=== PATIENT | female | born 1955 | race Caucasian/White ===

== ENCOUNTER 2023-05-05 15:42 | Emergency (ER) | payer MEDICARE, OTHER, SELFPAY ==
[2023-05-05 15:42] VITALS: BMI 22.1
[2023-05-05 15:46] VITALS: BP 136/89
[2023-05-05 15:49] VITALS: BP 136/89
[2023-05-05 16:00] VITALS: BP 143/94
[2023-05-05 16:27] LABS: % Basophils 0.8 % (0-2); % Eosinophils 6.2 % (0-6); % Immature Granulocytes 0.2 % (0-0.5); % Lymphocytes 32.6 % (20.5-51.1); % Monocytes 8.3 % (1.7-9.3); % Neutrophils 51.9 % (42.2-75.2); Absolute Eosinophils 0.3 10^3/uL (0-0.7); Absolute Lymphocytes 1.6 10^3/uL (1.2-3.4); Absolute Monocytes 0.4 10^3/uL (0.1-0.6); Absolute Neutrophils 2.5 10^3/uL (1.4-6.5); Hematocrit 34.2 % (37.0-47.0); Hemoglobin 12.1 g/dL (12.0-16.0); Mean Corp Hgb Conc. 35.4 g/dL (33.0-37.0); Mean Corpuscular Hgb 29.9 pg (27.0-31.0); Mean Corpuscular Volume 84.4 fL (81.0-99.0); Mean Platelet Volume 8.3 fL (7.4-10.4); Nucleated Red Blood Cells % 0 %; Platelet Count 240 10^3/uL (130-400); Red Blood Cell Count 4.05 10^6/uL (4.20-5.40); Red Cell Dist. Width 14.1 % (11.5-14.5); White Blood Cell Count 4.8 10^3/uL (4.8-10.8)
[2023-05-05 16:49] LABS: Blood Urea Nitrogen 10 mg/dl (7-17); Calcium 9.1 mg/dl (8.4-10.2); Carbon Dioxide 30 mmol/L (22-30); Chloride 93 mmol/L (98-107); Estimated Creatinine Clearance 75 ml/min; Glucose 98 mg/dl (70-99); Potassium 2.9 mmol/L (3.5-5.1); Sodium 128 mmol/L (135-145); eGFR > 60.00
[2023-05-05 17:00] VITALS: BP 133/86
[2023-05-05] MEDS: KCL 40 MEQ PO (18:23)
[2023-05-05] MEDS: NSS 1000 IV (18:25)
[2023-05-05 18:36] LABS: Magnesium 2.1 mg/dl (1.6-2.3)
--- NOTE | 2023-05-05 18:53 | ED.GENMED ---
History of Present Illness
General
Chief Complaint: Numbness
Source: patient
Exam Limitations: none
Time Seen by Provider: 05/05/23 17:25
Nursing documentation reviewed up to this point in time: agreed with
Travel History
Have you had any contact with someone who has COVID-19?: No
Do you have any symptoms of coronavirus? Fever > 100 degrees, chills, cough, shortness of breath, sore throat, loss of taste or smell, muscle aches, or headache?: No
History of Present Illness
History of Present Illness:
Patient presents to ED secondary to sudden onset of right arm numbness upon waking up this morning, along with pain in her right toes. Denies headache. Patient reports chronic, ongoing neck pain. Since waking up this morning, patient states that
her numbness has gradually improved. At the time of evaluation ED, patient is without any complaints. Denies difficulty with speech or swallowing. Denies weakness. Denies difficulty with ambulation. Denies previous history of similar symptoms.
Denies recent illness. Denies recent injury. Patient is status post left wrist surgery at [facility] recently.
Past History
Past History
ED Past Medical History: Seizures, Hypothyroidism, Psychiatric (Depression) and Other (Heart murmur)
ED Past Surgical History: Cholecystectomy (1994), Orthopedic (Spinal fusion/discectomy 1986), Tonsilectomy and Other (Sinus surgery)
Social History
Tobacco: Non-smoker
Alcohol: None
Drug: None
Personal: Single
Living: alone
Review of Systems
Review of Systems
Allergies reviewed?: Yes
All Other Systems: ROS reviewed and negative except as documented in HPI and ROS
Constitutional: Reports no symptoms
EENT: Reports no symptoms
Respiratory: Reports no symptoms
Cardiac: Reports no symptoms
ABD/GI: Reports no symptoms
: Reports no symptoms
Musculoskeletal: Reports neck pain
Skin: Reports no symptoms
Neurological: Reports numbness
Phy Exam
Physical Exam
Physical Exam:
Physical Exam
General: no apparent distress, not acutely ill. afebrile
Head: nc/at. eomi
Neck: supple. no midline tenderness.
Heart: s1/s2 regular rate and rhythm, no murmur. equal radial pulses.
Lungs: no acute respiratory distress. clear bilaterally
Abdomen: normal bowel sounds. not tender.
Neuro: alert and oriented. no focal neurological deficits. normal speech. normal gait.
Skin: no rash
Psychiatric: well kept. interactive and cooperative
Extremities: no edema. no calf tenderness.
Course
Orders/Labs/Results
Orders:
Orders
05/05/23 16:16
CT Head W/o Iv Contrast Urgent
Comment:
Reason For Exam: right sided numbness
Cardiac Monitoring- Treatment ONCE
Pulse Ox/cont/shift [RESP] Stat
Quantity: 1
05/05/23 16:17
Electrocardiogram (*1) Stat
Reason for Study: Other
Other Reason for Exam: neuro symptoms
EKG- Treatment ONCE
IV Insert/Care/Rem.- Treatment PRN
05/05/23 16:18
Basic Metabolic Panel Urgent
Complete Blood Count/With Diff Urgent
Magnesium Urgent
Comment: ADD ON
05/05/23 17:59
Add On- LAB Urgent
Tests Added?: magnesium
0.9% Sodium Chloride 1000 ml [Nss] 1,000 ml IV BOLUS
Potassium Chloride [KCl] 40 meq PO NOW STA
05/05/23 19:54
Basic Metabolic Panel Urgent
05/05/23 20:28
Acetaminophen [Tylenol] 650 mg PO NOW STA
Gabapentin [Neurontin] 300 mg PO NOW STA
05/05/23 20:53
Potassium Chloride [KCl] 20 meq PO NOW STA
05/05/23 21:03
Potassium Chloride [KCl] 40 meq 0.9% Sodium Chloride 250 ml [Nss] 250 ml IV NOW
05/06/23 02:22
Potassium Urgent
Abnormal Lab Results
05/05/23 05/05/23
16:18 19:54
RBC 4.05 L 10^6/uL
(4.20-5.40)
Hct 34.2 L %
(37.0-47.0)
Eosinophils % 6.2 H %
(0-6)
Sodium 128 L mmol/L 134 L mmol/L
(135-145) (135-145)
Potassium 2.9 L mmol/L 2.5 L* mmol/L
(3.5-5.1) (3.5-5.1)
Chloride 93 L mmol/L 95 L mmol/L
(98-107) (98-107)
Carbon Dioxide 34 H mmol/L
(22-30)
Creatinine 0.4 L mg/dL 0.5 L mg/dL
(0.6-1.0) (0.6-1.0)
Glucose 112 H mg/dl
(70-99)
05/05/23 16:18
05/06/23 02:22
Vital Signs
Initial and Last Documented VS:
Initial Vital Signs
Temp Pulse Resp BP Pulse Ox
98.3 F 92 16 136/89 99
05/05/23 15:46 05/05/23 15:46 05/05/23 15:46 05/05/23 15:46 05/05/23 15:46
Last Documented Vital Signs
Temp Pulse Resp BP Pulse Ox
98.3 F 78 26 120/90 98
05/05/23 15:46 05/06/23 03:20 05/06/23 03:20 05/06/23 03:21 05/06/23 03:20
MDM/Problems Addressed
MDM/Problems Addressed:
Patient remains asymptomatic, without any recurrent episodes of paresthesia during extended course of observation ED. Patient's spontaneously resolved numbness sensation, likely secondary to the way in which she may have slept with underlying disc
disease.
Blood work reviewed, significant for hyponatremia and hypokalemia. When repeated after IV fluid administration, sodium improvement noted, but potassium decreased, likely dilutional. As such, decision made to replete via K rider. Potassium will be
repeated. If improved, patient will be discharged home with recommendation to continue supplementation as an outpatient, along with PCP follow-up
*EKG
Interpreted by ED Provider?: Yes
EKG Intrepretation Date: 05/05/23
Heart Rate: 69
Rate: normal
Rhythm: sinus
[place]: normal axis
Interval: normal interval
*Critical Care Note
Total Time (30-74mins, 75-104mins- exclusive of procedures): Not Applicable
ED Attending Note
-
Portions of this chart may have been created with voice recognition software.� Occasional wrong word or��sound alike� substitutions may have occurred due to the inherent limitations of voice recognition software.
Discharge Plan
Departure
Patient Disposition: Home (Routine Discharge)
Date of Disposition: 05/06/23
Time of Disposition: 03:10
Patient with high blood pressure during this ER visit?: Yes
Condition: Good
Discharge Problem:
Hyponatremia, Hypokalemia
Instructions: Hypokalemia (DC), High Potassium Diet, Hyponatremia (DC), Paresthesia (DC)
Prescriptions:
No Action
levothyroxine 112 MCG tablet
112 mcg PO DAILY
lorazepam 0.5 MG tablet
0.5 mg PO QIDPRN PRN (Reason: anxiety)
amlodipine 5 MG tablet
5 mg PO DAILY
sertraline 50 mg Tablet
150 mg PO DAILY
cyclobenzaprine [Flexeril] 10 mg Tablet
10 mg PO HS
fexofenadine [Radha] 60 mg Tablet
60 mg PO BIDPRN PRN (Reason: allergies)
dextroamphetamine-amphetamine [Adderall] 20 mg Tablet
20 mg PO DAILYPRN PRN (Reason: for work days only)
gabapentin 300 mg Capsule
600 mg PO BID
cholecalciferol (vitamin D3) [Vitamin D3] 25 mcg (1,000 unit) Tablet
25 mcg PO DAILY
magnesium oxide 400 mg magnesium Tablet
400 mg PO DAILY
Referrals:
Hilaria Figueroa MD [Family Provider] -
Activity Restrictions/Additional Instructions:
As discussed, please follow-up with your primary care physician for reevaluation, including repeat blood work within 1 to 2 weeks.
Interventions
Interventions:
*Risk Screen - Suicide Last Done: 05/05/23 15:50
*General Assessment Last Done: 05/05/23 15:50
*Neglect/Abuse Screening Last Done: 05/05/23 15:50
*ED COVID-19 Vaccine History Last Done: 05/05/23 15:50
*Nursing Disposition Last Done: 05/06/23 03:15
ED- Neurological Assessment Last Done: 05/05/23 15:50
Discharge Date and Time
Discharge Date/Time: 05/06/23 03:50
[2023-05-05] MEDS: TYLENOL 650 MG PO (20:31)
[2023-05-05] MEDS: NEURONTIN 300 MG PO (20:31)
[2023-05-05 20:39] LABS: Blood Urea Nitrogen 8 mg/dl (7-17); Calcium 8.5 mg/dl (8.4-10.2); Carbon Dioxide 34 mmol/L (22-30); Chloride 95 mmol/L (98-107); Estimated Creatinine Clearance 75 ml/min; Glucose 112 mg/dl (70-99); Potassium 2.5 mmol/L (3.5-5.1); Sodium 134 mmol/L (135-145); eGFR > 60.00
[2023-05-05] MEDS: KCL 270 MEQ IV (21:17)
[2023-05-05] MEDS: KCL 20 MEQ PO (21:18)
[2023-05-05 22:08] VITALS: BP 122/77
[2023-05-05 23:00] VITALS: BP 114/79
[2023-05-06 02:44] LABS: Potassium 4.1 mmol/L (3.5-5.1)
[2023-05-06 03:21] VITALS: BP 120/90
== END 2023-05-06 03:50 | disposition home or self-care (01) ==
LOC: EMR 15:42
PROVIDERS: Emergency Medicine; EMERGENCY PHYSICIAN Emergency Medicine; FAMILY PHYSICIAN Family Medicine
DX: E87.6 Hypokalemia (principal); E87.1 Hypo-osmolality and hyponatremia; R03.0 Elevated blood-pressure reading, without diagnosis of hypertension
CPT/HCPCS: 99285; 96374; 96361; 70450; 80048; 83735; 84132; 85025; 93005

== ENCOUNTER → 2023-06-21 15:45 | Outpatient (REF) | payer MEDICARE, OTHER, SELFPAY ==
[2023-06-21 16:25] LABS: % Eosinophils 2.7 % (0-6); % Immature Granulocytes 0.3 % (0-0.5); % Lymphocytes 21.4 % (20.5-51.1); % Monocytes 8.2 % (1.7-9.3); % Neutrophils 66.4 % (42.2-75.2); Absolute Basophils 0.1 10^3/uL (0-0.2); Absolute Eosinophils 0.2 10^3/uL (0-0.7); Absolute Lymphocytes 1.3 10^3/uL (1.2-3.4); Absolute Monocytes 0.5 10^3/uL (0.1-0.6); Absolute Neutrophils 4.2 10^3/uL (1.4-6.5); Hematocrit 38.6 % (37.0-47.0); Hemoglobin 13.2 g/dL (12.0-16.0); Mean Corp Hgb Conc. 34.2 g/dL (33.0-37.0); Mean Corpuscular Volume 84.8 fL (81.0-99.0); Mean Platelet Volume 8.2 fL (7.4-10.4); Nucleated Red Blood Cells % 0 %; Platelet Count 321 10^3/uL (130-400); Red Blood Cell Count 4.55 10^6/uL (4.20-5.40); Red Cell Dist. Width 15.4 % (11.5-14.5); White Blood Cell Count 6.3 10^3/uL (4.8-10.8)
[2023-06-21 16:50] LABS: ALT (SGPT) 21 U/L (0-35); AST (SGOT) 29 U/L (14-36); Albumin 4.6 g/dl (3.5-5.0); Alkaline Phosphatase 87 U/L (38-126); Blood Urea Nitrogen 16 mg/dl (7-17); Carbon Dioxide 34 mmol/L (22-30); Chloride 92 mmol/L (98-107); Glucose 98 mg/dl (70-99); HDL Cholesterol 106 mg/dl; LDL Cholesterol, Calculated 69 mg/dl; Potassium 3.4 mmol/L (3.5-5.1); Sodium 134 mmol/L (135-145); Total Bilirubin 0.8 mg/dl (0.2-1.3); Total Cholesterol 189 mg/dl (50-199); Total Protein 7.3 g/dl (6.3-8.2); Triglyceride 73 mg/dl (10-149); Very Low Density Lipoprotein 14 mg/dl (0-30); eGFR > 60.00
== END ==
LOC: REG 15:45
PROVIDERS: ATTENDING PHYSICIAN Nurse Practitioner; FAMILY PHYSICIAN Family Medicine; OTHER PHYSICIAN Psychiatry & Neurology Neurology
DX: G43.009 Migraine without aura, not intractable, without status migrainosus (principal); G45.9 Transient cerebral ischemic attack, unspecified; R79.89 Other specified abnormal findings of blood chemistry; E87.1 Hypo-osmolality and hyponatremia
CPT/HCPCS: 36415; 80053; 80061; 85025

== ENCOUNTER → 2023-08-17 16:27 | Outpatient (REF) | payer MEDICARE, OTHER, SELFPAY | LOC: PAVMRI 16:27 | PROVIDERS: ATTENDING PHYSICIAN Nurse Practitioner; FAMILY PHYSICIAN Family Medicine | DX: G45.9 Transient cerebral ischemic attack, unspecified (principal) | CPT/HCPCS: 70544; 70547; 70551 ==

== ENCOUNTER → 2023-08-23 17:30 | Outpatient (REF) | payer MEDICARE, OTHER, SELFPAY ==
[2023-08-23 18:08] LABS: Blood Urea Nitrogen 19 mg/dl (7-17); Calcium 10.1 mg/dl (8.4-10.2); Carbon Dioxide 30 mmol/L (22-30); Chloride 98 mmol/L (98-107); Glucose 117 mg/dl (70-99); Potassium 4.4 mmol/L (3.5-5.1); Sodium 137 mmol/L (135-145); eGFR > 60.00
== END ==
LOC: REG 17:30
PROVIDERS: ATTENDING PHYSICIAN Family Medicine
DX: E87.1 Hypo-osmolality and hyponatremia (principal)
CPT/HCPCS: 36415; 80048; 83735

== ENCOUNTER → 2023-09-07 10:53 | Outpatient (REF) | payer MEDICARE, OTHER, SELFPAY | LOC: RCS 10:53 | PROVIDERS: ATTENDING PHYSICIAN Nurse Practitioner; FAMILY PHYSICIAN Family Medicine | DX: G45.9 Transient cerebral ischemic attack, unspecified (principal) | CPT/HCPCS: 93225; 93226 ==

== ENCOUNTER → 2023-09-14 10:29 | Outpatient (REF) | payer MEDICARE, OTHER, SELFPAY | LOC: WDC 10:29 | PROVIDERS: ATTENDING PHYSICIAN Family Medicine | DX: Z12.31 Encounter for screening mammogram for malignant neoplasm of breast (principal); M81.0 Age-related osteoporosis without current pathological fracture | CPT/HCPCS: 77080 ==

== ENCOUNTER 2024-01-18 23:13 | Inpatient (IN) | payer MEDICARE, OTHER, SELFPAY ==
[2024-01-18 20:29] VITALS: BP 147/92; BMI 17.9
--- NOTE | 2024-01-18 21:12 | ED.GENMED ---
History of Present Illness
General
Chief Complaint: Change in Mental Status
Time Seen by Provider: 01/18/24 20:57
History of Present Illness
History of Present Illness:
Patient is a 68-year-old woman with history of hypertension, hypothyroidism presenting to the emergency department change in her mental status. Per medics they were called as patient was found outside her home. Her neighbor has seen this happen
once before and was able to redirect her.
Brought her in for further evaluation. Patient at my evaluation is unable to tell me why she is here. She is fixated on receiving a mailing envelope and is telling me about a [employer] and [employer] of the [place]. She does start to talk about her daughter
and her mother and about executing a will. She cannot provide me any medical complaints at this time. She denies any SI or HI. She denies any alcohol or drug use. She does state that she has fallen before. History is otherwise limited given
patient's mental status.
Past History
Past History
ED Past Medical History: Seizures, Hypothyroidism, Psychiatric (Depression) and Other (Heart murmur)
ED Past Surgical History: Cholecystectomy (1994), Orthopedic (Spinal fusion/discectomy 1986), Tonsilectomy and Other (Sinus surgery)
Social History
Tobacco: Non-smoker
Alcohol: None
Drug: None
Personal: Single
Living: alone
Phy Exam
Physical Exam
Physical Exam:
GENERAL: in no acute distress
HEENT: normocephalic, extraocular movements intact, moist oral mucosa
NECK: normal inspection
RESPIRATORY: no respiratory distress, clear to auscultation bilaterally
CARDIOVASCULAR: regular rate and rhythm
ABDOMEN/: soft, non-distended, non-tender to palpation, no rebound or guarding
EXTREMITIES: non-tender, no edema/swelling, bilateral lower extremities feet or erythematous at the sole with some erythema extending up the left calf and some warmth
NEUROLOGIC: awake and alert oriented x 3, moves all extremities
SKIN: warm
Sepsis
Sepsis Screening
Sepsis Assessment: Sepsis Ruled Out
Sepsis Screen
Sepsis Screen: Sepsis Ruled Out
Date: 01/18/24
Time: 22:28
Course
Orders/Labs/Results
Orders:
Orders
01/18/24 21:10
Drug Screen, Urine [Urine Drug Abuse Screen] Urgent
Urinalysis Reflex To Culture Urgent
01/18/24 21:11
Electrocardiogram (*1) Urgent
Reason for Study: Other
Other Reason for Exam: altered
CT Head W/o Iv Contrast Urgent
Comment:
Reason For Exam: altered
EKG- Treatment ONCE
01/18/24 21:36
Alcohol Urgent
Aspirin level [Salicylate] Urgent
Complete Blood Count/With Diff Urgent
Comprehensive Metabolic Panel Urgent
Thyroid profile [TSH Reflex To Free T4] Urgent
Tylenol [Acetaminophen] Urgent
01/18/24 22:25
Vancomycin 1 Gram/200 ml [Vancocin] 1 gram in 200 ml IV NOW
Abnormal Lab Results
01/18/24
21:36
Absolute Neuts (auto) 7.1 H 10^3/uL
(1.4-6.5)
Absolute Monos (auto) 0.8 H 10^3/uL
(0.1-0.6)
Lymphocytes % 17.4 L %
(20.5-51.1)
Potassium 3.4 L mmol/L
(3.5-5.1)
Chloride 93 L mmol/L
(98-107)
Carbon Dioxide 36 H mmol/L
(22-30)
BUN 30 H mg/dl
(7-17)
AST 56 H U/L
(14-36)
ALT 36 H U/L
(0-35)
Salicylates < 1.0 L mg/dl
(2.0-20.0)
Acetaminophen < 10 L ug/ml
(10-30)
01/18/24 21:36
01/18/24 21:36
Vital Signs
Initial and Last Documented VS:
Initial Vital Signs
Temp Pulse Resp BP Pulse Ox
98.4 F 77 18 147/92 97
01/18/24 20:29 01/18/24 20:29 01/18/24 20:29 01/18/24 20:29 01/18/24 20:29
Last Documented Vital Signs
Temp Pulse Resp BP Pulse Ox
98 F 77 18 147/92 97
01/18/24 21:38 01/18/24 20:29 01/18/24 20:29 01/18/24 20:29 01/18/24 20:29
MDM/Problems Addressed
Differential Diagnosis Includes:
Patient is a 68-year-old woman with history of hypertension, hypothyroidism presenting to the emergency department for change in her mental status. Vitals here are unremarkable and exam shows a woman who is oriented but is confused and unable to
hold a coherent conversation. Differential is broad but consists of metabolic encephalopathy, traumatic injury, cellulitis, infection. Will check blood work urine EKG CT scan of the head. Will obtain additional information from patient's
daughter. Patient will likely need admission.
*Critical Care Note
Total Time (30-74mins, 75-104mins- exclusive of procedures): Not Applicable
Update Note
Update Note:
Unable to obtain collateral information. On reevaluation patient still remains confused though is oriented and can follow commands. Her left lower extremity erythema is more pronounced and it is more warm after she ambulated. Will give
antibiotics. She is allergic to both penicillins and cephalosporins we will give vancomycin for now. Blood work otherwise notable for normal white count. Her bicarb is slightly elevated she does have some elevation in her AST however tox labs are
negative.
Thyroid cascade pending at this time as well as UDS. Head CT negative per my interpretation. Discussed with hospitalist who excepted patient to their service.
ED Attending Note
-
Portions of this chart may have been created with voice recognition software.� Occasional wrong word or��sound alike� substitutions may have occurred due to the inherent limitations of voice recognition software.
Discharge Plan
Departure
Patient Disposition: Admit
Date of Disposition: 01/18/24
Time of Disposition: 22:26
Presentation/result/management discussed w/ accepting MD/DO: Hospitalist
Discharge Problem:
Altered mental status
Prescriptions:
No Action
levothyroxine 112 MCG tablet
112 mcg PO DAILY
lorazepam 0.5 MG tablet
0.5 mg PO QIDPRN PRN (Reason: anxiety)
amlodipine 5 MG tablet
5 mg PO DAILY
sertraline 50 mg Tablet
150 mg PO DAILY
cyclobenzaprine [Flexeril] 10 mg Tablet
10 mg PO HS
fexofenadine [Radha] 60 mg Tablet
60 mg PO BIDPRN PRN (Reason: allergies)
dextroamphetamine-amphetamine [Adderall] 20 mg Tablet
20 mg PO DAILYPRN PRN (Reason: for work days only)
gabapentin 300 mg Capsule
600 mg PO BID
cholecalciferol (vitamin D3) [Vitamin D3] 25 mcg (1,000 unit) Tablet
25 mcg PO DAILY
magnesium oxide 400 mg magnesium Tablet
400 mg PO DAILY
Referrals:
UNKNOWN - PT NOT,INTERVIEWE [Family Provider] -
Interventions
Interventions:
*Risk Screen - Suicide Last Done: 01/18/24 20:29
*General Assessment Last Done: 01/18/24 20:29
*Neglect/Abuse Screening Last Done: 01/18/24 20:29
ED- Fall Risk Assessment Last Done: 01/18/24 21:39
*ED COVID-19 Vaccine History Last Done: 01/18/24 21:39
ED- Cardiac Assessment Last Done: 01/18/24 21:39
ED- Neurological Assessment Last Done: 01/18/24 21:39
ED- Pulmonary Assessment Last Done: 01/18/24 21:39
ED Swallowing Screen Last Done: 01/18/24 21:39
Discharge Date and Time
Print Language: FRENCH
[2024-01-18 21:38] VITALS: BMI 19.1
[2024-01-18 21:42] LABS: % Basophils 0.5 % (0-2); % Eosinophils 0.2 % (0-6); % Immature Granulocytes 0.4 % (0-0.5); % Lymphocytes 17.4 % (20.5-51.1); % Monocytes 8.5 % (1.7-9.3); Absolute Basophils 0.1 10^3/uL (0-0.2); Absolute Lymphocytes 1.7 10^3/uL (1.2-3.4); Absolute Monocytes 0.8 10^3/uL (0.1-0.6); Absolute Neutrophils 7.1 10^3/uL (1.4-6.5); Hematocrit 40.4 % (37.0-47.0); Hemoglobin 13.8 g/dL (12.0-16.0); Mean Corp Hgb Conc. 34.2 g/dL (33.0-37.0); Mean Corpuscular Hgb 28.3 pg (27.0-31.0); Mean Platelet Volume 8.5 fL (7.4-10.4); Nucleated Red Blood Cells % 0 %; Platelet Count 307 10^3/uL (130-400); Red Blood Cell Count 4.87 10^6/uL (4.20-5.40); Red Cell Dist. Width 14.2 % (11.5-14.5); White Blood Cell Count 9.7 10^3/uL (4.8-10.8)
[2024-01-18 22:00] LABS: ALT (SGPT) 36 U/L (0-35); AST (SGOT) 56 U/L (14-36); Acetaminophen < 10 ug/ml (10-30); Albumin 4.7 g/dl (3.5-5.0); Alcohol None Detected; Alkaline Phosphatase 78 U/L (38-126); Blood Urea Nitrogen 30 mg/dl (7-17); Calcium 10.1 mg/dl (8.4-10.2); Carbon Dioxide 36 mmol/L (22-30); Chloride 93 mmol/L (98-107); Estimated Creatinine Clearance 69 ml/min; Glucose 91 mg/dl (70-99); Potassium 3.4 mmol/L (3.5-5.1); Salicylate < 1.0 mg/dl (2.0-20.0); Sodium 139 mmol/L (135-145); Total Bilirubin 1.1 mg/dl (0.2-1.3); Total Protein 7.2 g/dl (6.3-8.2); eGFR > 60.00
[2024-01-18 22:29] LABS: TSH Reflex To Free T4 3.15 uIU/ml (0.47-4.68)
--- NOTE | 2024-01-18 22:46 | PHANOTE ---
Med Rec Note:
Pt unable to answer questions about medications. Pt telling multiple different stories. Home med list compiled from Dr Hanley and OBINNA.
[2024-01-18] MEDS: VANCOCIN 200 IV (23:00)
--- NOTE | 2024-01-18 23:08 | HPS.HSE ---
Family Physician
-
Family Physician: INTERVIEWE UNKNOWN - PT NOT
Chief Complaint
-
altered mental status
History of Present Illness
68-year-old female past medical history of hypertension, hypothyroidism, depression, seizures, presenting for change in mental status. Patient was found outside her home. Her neighbor has seen this happen before and was able to redirect her.
Patient unable to tell ER why she is here. She is fixated on receiving a mailing envelope and is telling the ER about the [employer] of the [place]. She talked about her daughter and her mother and about executing a bill. She denies any
symptoms or drug use.
Patient states that her sister thinks that she has schizophrenia.
Patient denies any urinary symptoms, nausea vomiting or diarrhea or cough. Denies fevers or chills.
Medical History
Past Medical History
Past Medical History: Reports Other ( hypertension, hypothyroidism, depression, seizures)
Past Surgical History: Reports Other (Cholecystectomy (1994), Orthopedic (Spinal fusion/discectomy 1986), Tonsilectomy and Other (Sinus surgery))
Social History
Tobacco: Non-smoker
Alcohol: None
Drug: None
Family History
Family History: Not pertinent
Allergies / Home Medications
Allergies reflects when Allergies were last updated in [employer].
Home Medications with original date entered in [employer]
Allergy/Medication List:
Allergies
Allergy/AdvReac Type Severity Reaction Status Date / Time
penicillin G Allergy Severe Hives Verified 01/18/24 20:28
Penicillins Allergy Severe Hives Verified 01/18/24 20:28
butorphanol [From Stadol] Allergy Intermediate Unknown Verified 01/18/24 20:28
Cephalosporins Allergy Unknown Verified 01/18/24 20:28
Home Medications
levothyroxine 112 mcg tablet 112 mcg PO DAILY Thyroid 05/22/21
lorazepam 0.5 mg tablet 0.5 mg PO QIDPRN PRN anxiety 01/29/22
amlodipine 5 mg tablet 5 mg PO DAILY Blood pressure 01/30/22
cyclobenzaprine 10 mg tablet 10 mg PO HS 04/02/23
dextroamphetamine-amphetamine 20 mg tablet (Adderall) 20 mg PO DAILYPRN PRN for work days only 04/02/23
fexofenadine 60 mg tablet 60 mg PO BIDPRN PRN allergies 04/02/23
gabapentin 300 mg capsule 600 mg PO BID 04/02/23
magnesium oxide 400 mg PO DAILY 04/02/23
sertraline 50 mg tablet 150 mg PO DAILY 04/02/23
hydrochlorothiazide 12.5 mg tablet 12.5 mg PO DAILY 01/18/24
hydrocodone 5 mg-acetaminophen 325 mg tablet 1 tab PO Q6HPRN PRN moderate pain 01/18/24
Review of Systems
-
History Source: Patient
A 12 point ROS was completed and negative except as noted: Yes
Constitutional: Reports No Symptoms
EENT: Reports No Symptoms
Respiratory: Reports No Symptoms
Cardiac: Reports No Symptoms
Abdomen/GI: Reports No Symptoms
: Reports No Symptoms
Musculoskeletal: Reports No Symptoms
Skin: Reports No Symptoms
Neurological: Reports No Symptoms
Endocrine: Reports No Symptoms
Hematologic/Lymphatic: Reports No Symptoms
Psych: Reports No Symptoms
Physical Exam
Vital Signs
Vital Signs
Temp Pulse Resp BP Pulse Ox
98 F 77 18 147/92 97
01/18/24 21:38 01/18/24 20:29 01/18/24 20:29 01/18/24 20:29 01/18/24 20:29
Physical Exam
General: Well Developed, Well Nourished and No Apparent Distress
HEENT: NormoCephalic, Moist mucous membranes and Atraumatic
Respiratory: Clear
Cardiac: S1/S2 and Regular Rhythm; No Murmur or Rub
GI: Soft, Non Tender, Non Distended and Normal Bowel Sounds; No Organomegaly
Rectal: Deferred by Provider
Musculoskeletal: No Clubbing, No Cyanosis and No Edema
Skin: No Rash
Neuro: Nonfocal/grossly intact
Laboratory Results
-
01/18/24 21:36
01/18/24 21:36
Laboratory Results
Total Bilirubin 1.1 mg/dl (0.2-1.3) 01/18/24 21:36
AST 56 U/L (14-36) H 01/18/24 21:36
ALT 36 U/L (0-35) H 01/18/24 21:36
Alkaline Phosphatase 78 U/L (38-126) 01/18/24 21:36
Data Reviewed
-
Lab Data: Labs Reviewed by me
Old Records: Reviewed
Impression/Plan
-
IMPRESSION:
PLAN:
# Acute encephalopathy rule out infectious etiology but likely schizophrenia versus bipolar
-Patient was initially noted to have erythema redness of the left lower extremity by the ER and was given vancomycin however this has resolved at this time, doubt cellulitis and stop further vanc
-Patient with flight of ideas and quickly changing the subject
-CT head negative for acute abnormality
-Urinalysis pending
-UDS pending
-Tylenol, salicylates, alcohol level negative
-Hold Adderal
-Check TSH
-Psychiatry consulted
# Hypokalemia secondary to hydrochlorothiazide
-Replete potassium
Anxiety/depression
-Continue sertraline
-Hold Ativan
ADHD
-Hold Adderall
Essential hypertension
-Continue amlodipine
-Continue hydrochlorothiazide
Hypothyroidism
-Continue levothyroxine
History of seizures
-Continue gabapentin
Full code
DVT prophylaxis�heparin
Regular diet
[2024-01-18] MEDS: KCL 40 MEQ PO (23:48)
[2024-01-19 00:58] VITALS: BP 131/70
--- NOTE | 2024-01-19 01:50 | PTCARENOTE ---
Pt arrived to room 436-01. Pt ambulated from stretcher to bed. Pt AAOx self, VSS. Bed alarm placed. Pt oriented to room, call eddy placed within reach.
[2024-01-19 02:10] VITALS: BP 149/94; BMI 19.0
[2024-01-19 04:45] LABS: % Basophils 0.6 % (0-2); % Eosinophils 0.7 % (0-6); % Immature Granulocytes 0.2 % (0-0.5); % Lymphocytes 18.3 % (20.5-51.1); % Monocytes 10.8 % (1.7-9.3); % Neutrophils 69.4 % (42.2-75.2); Absolute Basophils 0.1 10^3/uL (0-0.2); Absolute Eosinophils 0.1 10^3/uL (0-0.7); Absolute Lymphocytes 1.5 10^3/uL (1.2-3.4); Absolute Monocytes 0.9 10^3/uL (0.1-0.6); Absolute Neutrophils 5.6 10^3/uL (1.4-6.5); Hematocrit 38.9 % (37.0-47.0); Hemoglobin 13.5 g/dL (12.0-16.0); Mean Corp Hgb Conc. 34.7 g/dL (33.0-37.0); Mean Corpuscular Hgb 29.3 pg (27.0-31.0); Mean Corpuscular Volume 84.4 fL (81.0-99.0); Mean Platelet Volume 8.7 fL (7.4-10.4); Nucleated Red Blood Cells % 0 %; Platelet Count 275 10^3/uL (130-400); Red Blood Cell Count 4.61 10^6/uL (4.20-5.40); Red Cell Dist. Width 13.9 % (11.5-14.5); White Blood Cell Count 8.1 10^3/uL (4.8-10.8)
[2024-01-19 05:09] LABS: ALT (SGPT) 32 U/L (0-35); AST (SGOT) 53 U/L (14-36); Albumin 4.4 g/dl (3.5-5.0); Alkaline Phosphatase 71 U/L (38-126); Blood Urea Nitrogen 22 mg/dl (7-17); Calcium 9.8 mg/dl (8.4-10.2); Carbon Dioxide 27 mmol/L (22-30); Chloride 98 mmol/L (98-107); Estimated Creatinine Clearance 69 ml/min; Glucose 82 mg/dl (70-99); Potassium 3.8 mmol/L (3.5-5.1); Sodium 140 mmol/L (135-145); Total Bilirubin 1.1 mg/dl (0.2-1.3); Total Protein 6.8 g/dl (6.3-8.2); eGFR > 60.00
[2024-01-19 05:38] LABS: TSH Reflex To Free T4 5.04 uIU/ml (0.47-4.68)
[2024-01-19 06:14] LABS: Free T4 1.51 ng/dl (0.78-2.19)
[2024-01-19 07:53] VITALS: BP 128/82
[2024-01-19] MEDS: HEPARIN 5000 UNITS SC (07:56)
[2024-01-19] MEDS: SYNTHROID 112 MCG PO (07:58)
[2024-01-19] MEDS: NORVASC 5 MG PO (07:58)
[2024-01-19] MEDS: MAG-TAB SR 84 MG PO (07:58)
[2024-01-19] MEDS: ORETIC 12.5 MG PO (07:58)
[2024-01-19] MEDS: NEURONTIN 600 MG PO ×2 (07:58→20:06)
[2024-01-19] MEDS: ZOLOFT 150 MG PO (07:58)
--- NOTE | 2024-01-19 08:34 | W.PN.HOSP.TC ---
Today's Communication/Plan
-
see A/P
Assessment / Plan
Assessment / Plan
HPI: 68-year-old female past medical history of hypertension, hypothyroidism, depression, seizures, p/w change in mental status. Patient was found outside her home. Her neighbor has seen this happen before and was able to redirect her. Patient
unable to tell ER why she was here. She was fixated on receiving a mailing envelope and was telling the ER about the [employer] and [employer] of the [place]. She talked about her daughter and her mother and about executing a bill. She denies any symptoms or
drug use.
Patient stated that her sister thinks she has schizophrenia.
Patient denies any urinary symptoms, nausea vomiting or diarrhea or cough. Denies fevers or chills.
A/P:
# Acute encephalopathy, likely schizophrenia versus bipolar
Patient was initially noted to have erythema redness of the left lower extremity by the ER and was given vancomycin however this has resolved at this time, doubt cellulitis and stopped further vanc
rule out infectious etiology: UA clean, CT head unrevealing, Check CRP
Check UDS
Tylenol, salicylates, alcohol level negative
Hold Adderal
TSH 5.04, FT4 at 1.51
Psychiatry consulted
# Hypokalemia secondary to hydrochlorothiazide
Repleted potassium
# Anxiety/depression
Continue sertraline
Hold Ativan
# ADHD
Hold Adderall
# Essential hypertension
Continue amlodipine
Stop [employer] hydrochlorothiazide with hypokalemia on admission
# Hypothyroidism
Continue levothyroxine
# History of seizures
Continue gabapentin
Full code
DVT prophylaxis� lovenox SQ
Regular diet
Call sons twice to update, calls not answered
Anticipated Discharge: 24 - 48 hours
Subjective/Interval History
-
Date of Service: January 19, 2024
Objective Data
-
Labs:
Laboratory Results
01/18/24 01/19/24
21:36 04:26
WBC 9.7 8.1
Hgb 13.8 13.5
Hct 40.4 38.9
Plt Count 307 275
Sodium 139 140
Potassium 3.4 L 3.8
Chloride 93 L 98
Carbon Dioxide 36 H 27
BUN 30 H 22 H
Creatinine 0.6 0.5 L
Glucose 91 82
Calcium 10.1 9.8
Total Bilirubin 1.1 1.1
AST 56 H 53 H
ALT 36 H 32
Alkaline Phosphatase 78 71
Vital Signs:
Vital Signs
Temp Pulse Resp BP Pulse Ox
36.5 C 83 16 128/82 100
01/19/24 07:53 01/19/24 07:58 01/19/24 07:53 01/19/24 07:58 01/19/24 07:53
Review of Systems
-
Unable to obtain full review of systems at this time due to: Acuity
Physical Exam
-
General: Well Developed, Well Nourished, No Apparent Distress, Comfortable and Conversant
HEENT: Normocephalic, Atraumatic and Moist Mucous Membranes
Respiratory: Clear to Auscultation and Non Labored Respirations; Negative Accessory Resp Muscle Use
Cardiac: Regular Rhythm and S1/S2
GI: Soft, Nontender, Nondistended and Normal Bowel Sounds
Musculoskeletal: No Clubbing and No Cyanosis
Skin: Negative Rash or Ulcers
Neuro: Awake and Alert
Psych: Calm; Negative Intact Judgement/Insight
Data Reviewed
-
CT Scan: Report Reviewed by me
Labs: Labs Reviewed by me
[2024-01-19 10:24] LABS: Urine Albumin Negative (Neg - Trace); Urine Bilirubin Negative (Negative); Urine Character Clear (Clear); Urine Color Yellow; Urine Glucose Negative (Negative); Urine Ketone 3+ (Negative); Urine Leukocyte Trace (Negative); Urine Nitrite Negative (Negative); Urine Occult Blood Negative (Negative); Urine Specific Gravity 1.025 (<1.030); Urine Urobilinogen Negative (Neg - 1+); Urine pH 6.5 (5.0-9.0)
[2024-01-19 10:49] LABS: Urine Bacteria Few (Negative); Urine Red Blood Cell 0-2 /HPF (0-2); Urine Squamous Cell 0-2 /LPF (Few); Urine White Cell 0-2 /HPF (0-5)
[2024-01-19 10:56] LABS: Amphetamines Negative (Negative); Barbiturates Negative (Negative); Benzodiazepines Negative (Negative); Buprenorphine Negative (Negative); Cocaine Negative (Negative); Marijuana Negative (Negative); Methadone Negative (Negative); Methamphetamines Negative (Negative); Opiates Negative (Negative); Phencyclidine Negative (Negative); Tricyclic Antidepressants Negative (Negative)
[2024-01-19 11:11] VITALS: BP 152/94; PULSE 94
[2024-01-19 15:10] VITALS: BP 125/80
--- NOTE | 2024-01-19 17:02 | CON.MD ---
Consultation - Medical
-
68 yr old F with PMH of HTN, hypothyroidism, seizures, and ADHD/mood disorder. Pt presented to ED with a possible change in mental status. Presented with bizarre behavior - fixated on her mail, possibly delusions with talking about the '[place] Workup medically thus far negative, it seems that a neighbor saw pt wandering outside which prompted her coming to ED. Reviewed prior records at , it seems that she has some sort of mood history but details are unclear. As
per Dr. Valdes's evaluation in 2021, pts sister at that time reported that pt has had a history of mood instability for much of her life, however was never hospitalized psychiatrically. At that time, sister reported that she thinks pt has BPD &
PTSD and sister at that time reported that she has seen pt behave this way in the past as well (at that time pt was presenting similarly).
Pt is poor historian and is difficult to interview - thought process is loose in association, speech is logorrheic though easily interuptible. Needs frequent redirection when answering questions as becomes derailed almost immediately when
responding. Appears paranoid, at times looking around suspiciously, often starts whispering as if someone is trying to listen in on what she is saying. Is oriented however unable to meaningfully explain why she is in the hospital - starts talking
about a group of men with some sort of nefarious plans, then says something about a 'figurehead', is very difficult to understand as content of speech is loose in association and seems delusional in nature.
It appears that she is prescribed Adderall IR 20mg once a day and ativan 0.5mg QID (2mg daily total). Her most recent fill of ativan was 3 days early as per PDMP, however other months fills generally on time or few days late so not filling early
consistently/frequently. However, cannot rule out her presentation being due to benzo withdrawal, in particular as her last 2 times admitted at there was no indication of psychosis nor does she appear to be on antipsychotic or mood stabilizer.
Has been taking zoloft 150mg for some time now, which if she were bipolar would have likely significantly destabilized her.
Sons not answering phone.
Unspecified mood d/o w/ psychosis (r/o bipolar I r/o schizoaffective r/o MDD with psychosis) vs benzodiazepene withdrawal
MSE: cooperative,speech is logorrheic,mood is anxious, affect is anxious and at time suspicious, thought process is loose in association, thought content: denies SI/HI, presents which delusions including paranoia. Grossly oriented to time and place.
Memory not formally tested. Insight poor. Judgement poor
1. Ativan 0.5mg QID (changing from PRN) - cannot rule out benzo w/d as cause of presentation. Has not been under care of psychiatrist nor any hx of inpatient admissions, and multiple prior admissions here with no psychosis nor any antipsychotics or
mood stabilizers on board. Her reported behavior of wandering outside and loose logorrheic presentation would be consistent with early delirium of benzo withdrawal.
2. Ordered GGT & CDT - Cannot rule out EtOH abuse as well & pt unable to provide meaningful history as to this. GGT nonspecific but may help if negative, CDT may not result in time but would be more specific and could show if there has been
significant daily use in past 2 weeks or so.
3. Risperidone 0.5mg BIDPRN acute agitation - would defer starting standing dose as want to see if resuming Ativan improves presentation
Will follow patient.
[2024-01-19] MEDS: ATIVAN 0.5 MG PO ×2 (17:50→21:24)
[2024-01-19] MEDS: LOVENOX 40 MG SC (17:50)
[2024-01-19] MEDS: FLEXERIL 10 MG PO (21:24)
[2024-01-19] MEDS: RISPERDAL M-TAB (ORALLY DISINTEGRATING) 0.5 MG PO (22:57)
[2024-01-19 23:00] VITALS: BP 139/92
[2024-01-20 06:42] LABS: ALT (SGPT) 27 U/L (0-35); AST (SGOT) 42 U/L (14-36); Albumin 3.6 g/dl (3.5-5.0); Alkaline Phosphatase 67 U/L (38-126); Blood Urea Nitrogen 14 mg/dl (7-17); Calcium 9.4 mg/dl (8.4-10.2); Carbon Dioxide 35 mmol/L (22-30); Chloride 97 mmol/L (98-107); Estimated Creatinine Clearance 69 ml/min; GGTP 14 U/L (12-43); Glucose 95 mg/dl (70-99); Potassium 3.5 mmol/L (3.5-5.1); Sodium 138 mmol/L (135-145); Total Bilirubin 0.5 mg/dl (0.2-1.3); Total Protein 5.8 g/dl (6.3-8.2); eGFR > 60.00
[2024-01-20 07:00] VITALS: BP 134/83
[2024-01-20] MEDS: NEURONTIN 600 MG PO ×2 (08:33→21:53)
[2024-01-20] MEDS: ZOLOFT 150 MG PO (08:33)
[2024-01-20] MEDS: SYNTHROID 112 MCG PO (08:34)
[2024-01-20] MEDS: MAG-TAB SR 84 MG PO (08:34)
[2024-01-20] MEDS: KCL 40 MEQ PO (08:34)
[2024-01-20] MEDS: NORVASC 5 MG PO (08:35)
[2024-01-20] MEDS: ATIVAN 0.5 MG PO ×4 (08:36→21:53)
--- NOTE | 2024-01-20 08:58 | W.PN.HOSP.TC ---
Today's Communication/Plan
-
see A/P
Assessment / Plan
Assessment / Plan
HPI: 68-year-old female past medical history of hypertension, hypothyroidism, depression, seizures, p/w change in mental status. Patient was found outside her home. Her neighbor has seen this happen before and was able to redirect her. Patient
unable to tell ER why she was here. She was fixated on receiving a mailing envelope and was telling the ER about the Isidro and [place] of the [place]. She talked about her daughter and her mother and about executing a bill. She denies any symptoms or
drug use.
Patient stated that her sister thinks she has schizophrenia.
Patient denies any urinary symptoms, nausea vomiting or diarrhea or cough. Denies fevers or chills.
A/P:
# Acute encephalopathy, likely schizophrenia versus bipolar
Patient was initially noted to have erythema redness of LLE by the ER and was given vancomycin, however this has resolved, doubt cellulitis hence stopped further vanc
ruled out infectious etiology: UA clean, CT head unrevealing, CRP WNL
Tylenol, salicylates, alcohol level negative; UDS negative
Hold Adderal
TSH 5.04, FT4 at 1.51
Psychiatry on board, recc Ativan 0.5mg QID (changing from PRN) as cannot rule out benzo w/d as cause of presentation.
Added Risperidone 0.5mg BIDPRN for acute agitatiom
# Hypokalemia secondary to hydrochlorothiazide
Replete potassium
# Anxiety/depression
Continue sertraline
Ativan dosage as above
# ADHD
Hold Adderall
# Essential hypertension
Continue amlodipine
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
# Hypothyroidism
Continue levothyroxine
# History of seizures
Continue gabapentin
Full code
DVT prophylaxis� lovenox SQ
Regular diet
Called son, call not answered.
Pt states that her sister's number is [phone] but this number does not work either.
DW RN
Anticipated Discharge: 24 - 48 hours
Subjective/Interval History
-
Date of Service: January 20, 2024
Objective Data
-
Labs:
Laboratory Results
01/20/24
05:00
Sodium 138
Potassium 3.5
Chloride 97 L
Carbon Dioxide 35 H
BUN 14
Creatinine 0.5 L
Glucose 95
Calcium 9.4
Total Bilirubin 0.5
AST 42 H
ALT 27
Alkaline Phosphatase 67
Vital Signs:
Vital Signs
Temp Pulse Resp BP Pulse Ox
36.9 C 88 16 134/83 97
01/20/24 07:00 01/20/24 07:00 01/20/24 07:00 01/20/24 07:00 01/20/24 07:00
I&O
01/19/24 01/20/24 01/21/24
07:59 06:59 06:59
Intake Total
Output Total
Balance
Review of Systems
-
Unable to obtain full review of systems at this time due to: Acuity
Physical Exam
-
General: Well Developed, Well Nourished, No Apparent Distress, Comfortable and Conversant
HEENT: Normocephalic, Atraumatic and Moist Mucous Membranes
Respiratory: Clear to Auscultation and Non Labored Respirations; Negative Accessory Resp Muscle Use
Cardiac: Regular Rhythm and S1/S2
GI: Soft, Nontender, Nondistended and Normal Bowel Sounds
Musculoskeletal: No Clubbing and No Cyanosis
Skin: Negative Rash or Ulcers
Neuro: Awake and Alert
Psych: Calm and Other (circumferential speech ); Negative Intact Judgement/Insight
Data Reviewed
-
CT Scan: Report Reviewed by me
Labs: Labs Reviewed by me
[2024-01-20 09:36] VITALS: BP 152/93; PULSE 111; O2SAT 97
--- NOTE | 2024-01-20 14:41 | CM ---
Addendum entered by Milka Lara 01/20/24 14:44:
Patient verified Pharmacy: [facility] @ [address] [place] [address]
Original Note:
Met briefly with patient at bedside; unable to complete IA;
Patient was OOB in chair eating lunch
Patient was alert and oriented to person, place; able to tell me her address and . Conversation after that made no sense.
Was unable to connect with Primary Contact, Son. Secondary Contact, Friend-was the wrong number when I called
Chart reviewed: Workup medically thus far negative, neighbor saw patient wandering outside which prompted her coming to ED;
Psych evaluated
Post Acute Recommendation to be determined
[2024-01-20 15:00] VITALS: BP 110/89
[2024-01-20] MEDS: RISPERDAL M-TAB (ORALLY DISINTEGRATING) 0.5 MG PO ×2 (15:58→21:53)
[2024-01-20] MEDS: LOVENOX 40 MG SC (18:00)
--- NOTE | 2024-01-20 18:27 | W.PN.UPDATE ---
Update Note
Progress Note Update
Pt seen & evaluated, chart reviewed. Pt sitting up in chair by bed eating. She does appear to be more alert than yesterday, however remains loose in association with logorrheic rambling speech and needing frequent redirection (though even then at
times unable to meaningfully answer questions). Preoccupied with 'the ' who is a 'figurehead' from the [place] and who she believes has been watching and harming her. Pt believes this person was living in her home for some reason, and would
watch her taking medication. She is able to acknowledge that she is prescribed Ativan, however makes some sort of reference to the Isidro interfering with her medication and when asked if she still had any ativan left at home, says she does not think
she does and attributes this to the Isidro. She filled most recently about 2 weeks ago if not less than that. To note, pt is easily distracted and with delusions so whether she actually has no Ativan left or not is difficult to truly tell, however I
would not r/o benzo withdrawal based on this (though would have expected more improvement with resumption of ativan). She is oriented, though not as to why she is in the hospital. Also observed to talk to someone unseen at one point (as if having
benign conversation with someone at home), so possibly some waxing/waning of consciousness/lucidity.
Multiple attempts have been made to contact son by multiple staff but there has been no answer thus far.
VS noted to show tachycardia and HTN which have been gradually improving since starting ativan QID - though correlation does not mean causation, this to me shows a need to continue monitoring for potential benzo withdrawal as cause of sxs.
1. Can trial risperidone 0.25mg AM + 0.5mg HS, whether withdrawal or delirium or primary psychosis, should nonetheless help improve symptoms
2. Continue Ativan 0.5mg QID - would continue to monitor for signs of withdrawal as some symptoms continue to appear more in line with a delirium than a psychosis & VS improving since resuming ativan
3. Continue to obtain collateral so as to hopefully clarify underlying cause of her presentation
[2024-01-20] MEDS: FLEXERIL 10 MG PO (21:53)
[2024-01-20 22:59] VITALS: BP 125/77
[2024-01-21 07:30] VITALS: BP 119/85
[2024-01-21] MEDS: NEURONTIN 600 MG PO ×2 (07:52→19:35)
[2024-01-21] MEDS: ZOLOFT 150 MG PO (07:52)
[2024-01-21] MEDS: ATIVAN 0.5 MG PO ×4 (07:53→23:15)
[2024-01-21] MEDS: MAG-TAB SR 84 MG PO (07:53)
[2024-01-21] MEDS: SYNTHROID 112 MCG PO (07:53)
[2024-01-21] MEDS: RISPERDAL M-TAB (ORALLY DISINTEGRATING) 0.25 MG PO (07:54)
[2024-01-21] MEDS: NORVASC 5 MG PO (07:54)
[2024-01-21 09:01] LABS: ALT (SGPT) 24 U/L (0-35); AST (SGOT) 36 U/L (14-36); Albumin 3.3 g/dl (3.5-5.0); Alkaline Phosphatase 58 U/L (38-126); Blood Urea Nitrogen 13 mg/dl (7-17); Calcium 9.3 mg/dl (8.4-10.2); Carbon Dioxide 33 mmol/L (22-30); Chloride 101 mmol/L (98-107); Estimated Creatinine Clearance 69 ml/min; Glucose 91 mg/dl (70-99); Magnesium 2.1 mg/dl (1.6-2.3); Potassium 4.4 mmol/L (3.5-5.1); Sodium 143 mmol/L (135-145); Total Bilirubin 0.5 mg/dl (0.2-1.3); Total Protein 5.6 g/dl (6.3-8.2); eGFR > 60.00
--- NOTE | 2024-01-21 09:49 | W.PN.HOSP.TC ---
Today's Communication/Plan
-
Continue medication adjustments as per psychiatry
Assessment / Plan
Assessment / Plan
HPI: 68-year-old female past medical history of hypertension, hypothyroidism, depression, seizures, p/w change in mental status. Patient was found outside her home. Her neighbor has seen this happen before and was able to redirect her. Patient
unable to tell ER why she was here. She was fixated on receiving a mailing envelope and was telling the ER about the Isidro and [place] of the [place]. She talked about her daughter and her mother and about executing a bill. She denies any symptoms or
drug use. Patient stated that her sister thinks she has schizophrenia. Patient denies any urinary symptoms, nausea vomiting or diarrhea or cough. Denies fevers or chills.
A/P:
# Acute encephalopathy, likely schizophrenia versus bipolar
Patient was initially noted to have erythema redness of LLE by the ER and was given vancomycin, however this has resolved, doubt cellulitis hence stopped further vanc
ruled out infectious etiology: UA clean, CT head unrevealing, CRP WNL
Tylenol, salicylates, alcohol level negative; UDS negative; TSH 5.04, FT4 at 1.51
Hold Adderall
Appreciate psychiatry input, continue Ativan 0.5 mg 4 times daily, started on risperidone 0.25 mg every morning, 0.5 mg at bedtime
Continue medication adjustments as per psychiatry
# Hypokalemia secondary to hydrochlorothiazide
Repleted and resolved
# Anxiety/depression
Continue sertraline
Ativan dosage as above
# ADHD
Hold Adderall
# Essential hypertension
Continue amlodipine
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
# Hypothyroidism
Continue levothyroxine
# History of seizures
Continue gabapentin
DVT prophylaxis�subcu Lovenox
Full code
Total time spent to see the patient on the floor, examine the patient, review data and lab results, discuss treatment plan with patient, nursing staff around 37 minutes.
Physical Exam
General: No acute distress
HEENT: Normocephalic, Atraumatic, EOMI, MMM
Respiratory: Clear to Auscultation bilaterally
Cardiac: Normal S1/S2, Regular Rate and Rhythm
GI: Soft, Nontender, Nondistended, Normal Bowel Sounds
Extremities: No Clubbing, Cyanosis, or Edema
Neuro: Nonfocal/Grossly Intact
Psych: Delusional
Calm, cooperative
Anticipated Discharge: 24 - 48 hours
Subjective/Interval History
-
Date of Service: January 21, 2024
Patient continues to talk about the cane at the [place]. She perseverates. No fever, no vomiting.
Objective Data
-
Labs:
Laboratory Results
01/21/24
07:51
Sodium 143
Potassium 4.4 D
Chloride 101
Carbon Dioxide 33 H
BUN 13
Creatinine 0.6
Glucose 91
Calcium 9.3
Total Bilirubin 0.5
AST 36
ALT 24
Alkaline Phosphatase 58
Vital Signs:
Vital Signs
Temp Pulse Resp BP Pulse Ox
98.1 F 84 18 119/85 97
01/21/24 07:30 01/21/24 07:30 01/21/24 07:30 01/21/24 07:30 01/21/24 07:30
I&O
01/20/24 01/21/24 01/22/24
06:59 06:59 06:59
Intake Total 240 / 240
Output Total
Balance 240 / 240
--- NOTE | 2024-01-21 10:54 | CM ---
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 Patient is independent with adl's and ambulation, no dme.
Plan; Home when stable.
--- NOTE | 2024-01-21 12:49 | W.PN.UPDATE ---
Update Note
Progress Note Update
patient seen chart reviewed. spoke with nursing. the patient remains delusional. told me about 'the surekha and goodwin' she met on her recent trip to [place]. she was quite pleasant although at times very hard to follow. she sees a psych prescriber
denita rueda. she said she took abilify in the past and feels that was very helpful for her . reviewed. the chart . she has a hx of psychosis that at least goes back a couple of years from our record. would wonder about the need for zoloft.
i did not address that with her today as she was very interested in convincing me she was not schizophrenic and i did not want to rock the boat. abilify is a good choice and it should be increased slowly. she believes she took about 15 mg in the
past. continue w ativan for now.i don't think this is tme or from ativan wd. in my opinion she has a psychotic illness which one schizophrenia or bipolar or schizoaffective may be less important.
[2024-01-21 15:07] VITALS: BP 119/81
[2024-01-21] MEDS: LOVENOX 40 MG SC (16:56)
--- NOTE | 2024-01-21 20:38 | PTCARENOTE ---
~20:25 Pt reported 'difficulty breathing and SOB. It started in the afternoon.' At time of reporting 'difficulty breathing and SOB,' pt was sitting in the chair. Pt denied chest pain. Pt reported pain 'in my stomach.' AAXO3. VS: Temp 97.7, RR 18, BP
113/79, HR 96, and O2 95% on RA. During bedside shift change report, pt was engaged in conversation about their day with AM and PM RN. Pt did not report difficulty breathing and SOB during bedside shift change report. Notified STONE SANDBLASTER Pedro Mayen.
STONE SANDBLASTER assessed pt at bedside. New orders placed. Per STONE SANDBLASTER, bladder scanned pt. Bladder scanned 656. Pt reported 'difficulty breathing and SOB' resolving. Pt encouraged to use bathroom. Pt ambulated to bathroom with rolling walker and RN. Pt denied
increased 'difficulty breathing and SOB' ambulating to bathroom. Pt urinated in toilet and hat. Measurable urine in hat output 550 mL. Plan of care ongoing.
~23:15 Pt reports 'difficulty breathing and SOB' resolving. Plan of care ongoing.
--- NOTE | 2024-01-21 20:52 | W.PN.UPDATE ---
Update Note
Progress Note Update
-Reported by the nursing staff that the patient complaining of SOB. Patient afebrile, SPO2 95% on RA
-On assessment. Patient reported history of asthma and sometime using inhaler for SOB, she complained of occasional cough.
-Denied chest pain, she also complaining of abdominal pain but she has difficulty with bowel movement. Complained of LT lower back pain and mentioned that is usually muscle pain.
-On exam, diminished lung sound, abdomen is distended but soft and non tender to touch, normal bowel sounds.
Plan
-Chest x-ray and covid test.
-Will order albuterol inhaler
-lidocaine patch for chronic muscle pain
-Will start the patient on bowel regimen as needed and will obtained bladder scan.
-bladder scan with 656 cc patient encouraged to use the bathroom and was able to urinate on her own without difficulty, patient is afebrile and UA done on the 2nd and unremarkable result. Will repeat ua if patient febrile or shows any signs of uti.
[2024-01-21 22:06] LABS: COVID-19 Antigen Negative (Negative)
[2024-01-21] MEDS: FLEXERIL 10 MG PO (23:15)
[2024-01-21] MEDS: ABILIFY 2 MG PO (23:15)
[2024-01-21] MEDS: SENOKOT 8.6 MG PO (23:16)
[2024-01-21] MEDS: LIDOCAINE 4% PATCH 1 PATCH TOPICAL (23:16)
[2024-01-21 23:17] VITALS: BP 111/64
--- NOTE | 2024-01-22 07:04 | W.PN.HOSP.TC ---
Today's Communication/Plan
-
see bold
Assessment / Plan
Assessment / Plan
HPI: 68-year-old female past medical history of hypertension, hypothyroidism, depression, seizures, p/w change in mental status. Patient was found outside her home. Her neighbor has seen this happen before and was able to redirect her. Patient
unable to tell ER why she was here. She was fixated on receiving a mailing envelope and was telling the ER about the Isidro and [place] of the [place]. She talked about her daughter and her mother and about executing a bill. She denies any symptoms or
drug use. Patient stated that her sister thinks she has schizophrenia. Patient denies any urinary symptoms, nausea vomiting or diarrhea or cough. Denies fevers or chills.
A/P:
# Acute encephalopathy, likely schizophrenia versus bipolar
Patient was initially noted to have erythema redness of LLE by the ER and was given vancomycin, however this has resolved, doubt cellulitis hence stopped further vanc
ruled out infectious etiology: UA clean, CT head unrevealing, CRP WNL
Tylenol, salicylates, alcohol level negative; UDS negative; TSH 5.04, FT4 at 1.51
Hold Adderall
Appreciate psychiatry input, continue Ativan 0.5 mg 4 times daily, resumed on Abilify 01/20, dose increased to 5 mg at bedtime as per psychiatry
Continue medication adjustments as per psychiatry
#Cough
#Allergic rhinitis
COVID-negative, chest x-ray negative, continue antihistamines
#Left posterior rib pain
She reports possibly falling recently
Check left rib series for completeness
Lidocaine patch
# Hypokalemia secondary to hydrochlorothiazide
Repleted and resolved
# Anxiety/depression
Continue sertraline
Ativan dosage as above
# ADHD
Hold Adderall
# Essential hypertension
Continue amlodipine
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
# Hypothyroidism
Continue levothyroxine
# History of seizures
Continue gabapentin
DVT prophylaxis�subcu Lovenox
Full code
Total time spent to see the patient on the floor, examine the patient, review data and lab results, discuss treatment plan with patient, nursing staff around 50 minutes.
Physical Exam
General: No acute distress
HEENT: Normocephalic, Atraumatic, EOMI, MMM
Respiratory: Clear to Auscultation bilaterally
Cardiac: Normal S1/S2, Regular Rate and Rhythm
GI: Soft, Nontender, Nondistended, Normal Bowel Sounds
Extremities: No Clubbing, Cyanosis
Trace pedal edema
Neuro: Nonfocal/Grossly Intact
Psych: Delusional
Calm, cooperative
Anticipated Discharge: 24 - 48 hours
Subjective/Interval History
-
Date of Service: January 21, 2024
Patient's confusion has improved. She knows she is in the hospital because she was confused. She reports pain on her left posterior ribs. She does have a mild cough. No fever.
Objective Data
-
Labs:
Laboratory Results
01/21/24
07:51
Sodium 143
Potassium 4.4 D
Chloride 101
Carbon Dioxide 33 H
BUN 13
Creatinine 0.6
Glucose 91
Calcium 9.3
Total Bilirubin 0.5
AST 36
ALT 24
Alkaline Phosphatase 58
Vital Signs:
Vital Signs
Temp Pulse Resp BP Pulse Ox
98.1 F 84 18 119/85 97
01/21/24 07:30 01/21/24 07:30 01/21/24 07:30 01/21/24 07:30 01/21/24 07:50
I&O
01/20/24 01/21/24 01/22/24
06:59 06:59 06:59
Intake Total 240 / 240
Output Total
Balance 240 / 240
[2024-01-22 07:54] VITALS: BP 126/82
[2024-01-22] MEDS: ATIVAN 0.5 MG PO ×4 (08:15→21:08)
[2024-01-22] MEDS: SYNTHROID 112 MCG PO (08:15)
[2024-01-22] MEDS: NEURONTIN 600 MG PO ×2 (08:15→21:08)
[2024-01-22] MEDS: NORVASC 5 MG PO (08:15)
[2024-01-22] MEDS: MAG-TAB SR 84 MG PO (08:15)
[2024-01-22] MEDS: ZOLOFT 150 MG PO (08:16)
[2024-01-22] MEDS: ZYRTEC 10 MG PO (09:19)
[2024-01-22] MEDS: LIDOCAINE 4% PATCH 1 PATCH TOPICAL (09:20)
[2024-01-22 09:36] VITALS: BP 134/87; PULSE 82
--- NOTE | 2024-01-22 14:20 | CM ---
Patient to return to home at discharge, digital analytics manager spoke with psychiatry today and plan is to home with possible PHP at [facility] if necessary plan is to follow patient progress in hospital and then follow up with discharge plans for patient.
Plan; To follow with patient progress.
--- NOTE | 2024-01-22 14:59 | W.PN.UPDATE ---
Update Note
Progress Note Update
patient seen chart reviewed. discussed w cm. patient does remain with delusional fx but she is improving. she is less focused on these delusions but she does tend to ramble about her life hx. she is feeling calmer since introduction of abilify
although last evening was c.o sob. not currently. i did discuss this w dr vogel who feels physically there is no issue w sob and patient was calm when i saw her and when i asked her about it said 'oh that has happened to me before.' increase abiify
to 5 mg since she was on 15 in the past and felt it helped. continue sertraline for now although i wonder if she truly needs it. php at [facility] might be an option for aftercare. case loader operator to see if this might work out. psych will follow
[2024-01-22 16:22] VITALS: BP 131/88
[2024-01-22] MEDS: LOVENOX 40 MG SC (17:02)
[2024-01-22] MEDS: ABILIFY 5 MG PO (21:08)
[2024-01-22] MEDS: SENOKOT 8.6 MG PO (21:08)
[2024-01-22] MEDS: FLEXERIL 10 MG PO (21:08)
[2024-01-22 23:16] VITALS: BP 128/87
[2024-01-23 07:26] VITALS: BP 151/97
[2024-01-23] MEDS: ATIVAN 0.5 MG PO ×4 (07:58→21:51)
[2024-01-23] MEDS: SYNTHROID 112 MCG PO (07:58)
[2024-01-23] MEDS: NEURONTIN 600 MG PO ×2 (07:58→19:53)
[2024-01-23] MEDS: MAG-TAB SR 84 MG PO (07:59)
[2024-01-23] MEDS: ZOLOFT 150 MG PO (07:59)
[2024-01-23] MEDS: NORVASC 5 MG PO (07:59)
[2024-01-23] MEDS: ZYRTEC 10 MG PO (07:59)
[2024-01-23] MEDS: LIDOCAINE 4% PATCH 1 PATCH TOPICAL (08:00)
--- NOTE | 2024-01-23 09:12 | W.PN.HOSP.TC ---
Today's Communication/Plan
-
See bold
Assessment / Plan
Assessment / Plan
HPI: 68-year-old female past medical history of hypertension, hypothyroidism, depression, seizures, p/w change in mental status. Patient was found outside her home. Her neighbor has seen this happen before and was able to redirect her. Patient
unable to tell ER why she was here. She was fixated on receiving a mailing envelope and was telling the ER about the Isidro and [place] of the [place]. She talked about her daughter and her mother and about executing a bill. She denies any symptoms or
drug use. Patient stated that her sister thinks she has schizophrenia. Patient denies any urinary symptoms, nausea vomiting or diarrhea or cough. Denies fevers or chills.
A/P:
# Acute encephalopathy, likely schizophrenia versus bipolar
Patient was initially noted to have erythema redness of LLE by the ER and was given vancomycin, however this has resolved, doubt cellulitis hence stopped further vanc
ruled out infectious etiology: UA clean, CT head unrevealing, CRP WNL
Tylenol, salicylates, alcohol level negative; UDS negative; TSH 5.04, FT4 at 1.51
Hold Adderall
Appreciate psychiatry input, continue Ativan 0.5 mg 4 times daily, resumed on Abilify 01/20, dose increased to 5 mg at bedtime as per psychiatry
Continue medication adjustments as per psychiatry
Discharge when cleared by psychiatry
#Cough
#Allergic rhinitis
COVID-negative, chest x-ray negative, continue antihistamines
#Left posterior rib pain
She reports possibly falling recently
Left rib series negative
Continue lidocaine patch
# Hypokalemia secondary to hydrochlorothiazide
Repleted and resolved
# Anxiety/depression
Continue sertraline
Ativan dosage as above
# ADHD
Hold Adderall
# Essential hypertension
Continue amlodipine
Blood pressure controlled with stopping hydrochlorothiazide for hypokalemia
# Hypothyroidism
Continue levothyroxine
# History of seizures
Continue gabapentin
DVT prophylaxis�subcu Lovenox
Full code
Total time spent to see the patient on the floor, examine the patient, review data and lab results, discuss treatment plan with patient, nursing staff around 51 minutes.
Physical Exam
General: No acute distress
HEENT: Normocephalic, Atraumatic, EOMI, MMM
Respiratory: Clear to Auscultation bilaterally
Cardiac: Normal S1/S2, Regular Rate and Rhythm
GI: Soft, Nontender, Nondistended, Normal Bowel Sounds
Extremities: No Clubbing, Cyanosis
Trace pedal edema
Neuro: Nonfocal/Grossly Intact
Psych: Delusional
Calm, cooperative
Anticipated Discharge: Within 24 hours
Subjective/Interval History
-
Date of Service: January 22, 2024
Patient's confusion has improved. She is anxious and tearful today. No fever, no vomiting.
Objective Data
-
Vital Signs:
Vital Signs
Temp Pulse Resp BP Pulse Ox
98.2 F 77 18 126/82 98
01/22/24 07:54 01/22/24 07:54 01/22/24 07:54 01/22/24 07:54 01/22/24 08:40
I&O
01/21/24 01/22/24 01/23/24
06:59 06:59 06:59
Intake Total 240 / 240 1380 / 1380
Balance 240 / 240 1380 / 1380
[2024-01-23 13:40] VITALS: BMI 19.0
--- NOTE | 2024-01-23 14:50 | PN.CDI ---
CDI
- -
CDI:
Physician Documentation Request
Admit Date: 01/18/24 23:13
Dear Doctor Do,
Clinical Indicators:
Patient admitted with change in mental status.
01/21 PN, 'Acute encephalopathy, likely schizophrenia versus bipolar...ruled out infectious etiology...Hold Adderall'
01/20 Psychiatry PN ' patient does remain with delusional fx but she is improving...in my opinion she has a psychotic illness which one schizophrenia or bipolar or schizoaffective may be less important.'
Based on the above, could you clarify in the Progress Notes and Discharge Summary which, if any of the following, is the most likely etiology of the confusion/altered mental status.
Encephalopathy ruled out; Psychosis only
Toxic Metabolic Encephalopathy
Multifactorial, due to psychosis and toxic metabolic encephalopathy
Other, please specify
Use of terms such as suspected, likely, concern for, or probable (associated with a specific diagnosis that is being evaluated, monitored, or treated as if it exists) are acceptable and can be coded in the inpatient setting, when documented at the
time of discharge.
Thank you,
Elvia Rhodes RN BSN
CDI Specialist
available via tiger text
Please use your independent medical judgment in providing your response.
[2024-01-23 15:59] VITALS: BP 121/80
--- NOTE | 2024-01-23 16:00 | W.PN.UPDATE ---
Update Note
Progress Note Update
Pt seen, chart reviewed. Pt alert, oriented, speech/thought somewhat rambling, though no delusions offered or apparent. Pt making good eye contact, has pleasant/appropriate affect. No signs of side effects with addition of Abilify, increased to 5
mg HS last pm. Pt lives alone with her dog, has supportive neighbors, dtr lives 5 minutes away per pt. Pt states recent stress triggered memories of past trauma. Pt has an outpatient psychiatrist- Dr Leonora Rodríguez PDMP shows pt has been
prescribed Adderall, last filled on 01/01/24, as well as Ativan 0.5 mg 4 x per day (#120 per month).
Imp: Unspecified psychosis, improving. Etiology unclear- possibly benzo withdrawal, stimulant-induced, vs psychiatric illness
Rec: continue Abilify, Sertraline, Ativan
Likely recommend discharge tomorrow at current rate of improvement. Will discuss possibility of referral to IOP or [facility] vs return directly to her outpatient psychiatrist
will follow
--- NOTE | 2024-01-23 16:10 | CM ---
Chart reviewed home when stable.
Plan; Home when stable.
[2024-01-23] MEDS: LOVENOX 40 MG SC (17:50)
[2024-01-23] MEDS: TYLENOL 650 MG PO (18:33)
[2024-01-23] MEDS: PROTONIX 40 MG PO (18:33)
[2024-01-23] MEDS: FLEXERIL 10 MG PO (21:52)
[2024-01-23] MEDS: ABILIFY 5 MG PO (21:52)
[2024-01-23] MEDS: SENOKOT 8.6 MG PO (21:53)
[2024-01-23 22:56] VITALS: BP 128/82
[2024-01-24 07:00] VITALS: BP 138/92
[2024-01-24] MEDS: ATIVAN 0.5 MG PO ×2 (08:20→13:15)
[2024-01-24] MEDS: NORVASC 5 MG PO (08:21)
[2024-01-24] MEDS: MAG-TAB SR 84 MG PO (08:21)
[2024-01-24] MEDS: PROTONIX 40 MG PO (08:22)
[2024-01-24] MEDS: SYNTHROID 112 MCG PO (08:22)
[2024-01-24] MEDS: ZYRTEC 10 MG PO (08:22)
[2024-01-24] MEDS: NEURONTIN 600 MG PO (08:22)
[2024-01-24] MEDS: ZOLOFT 150 MG PO (08:25)
[2024-01-24] MEDS: LIDOCAINE 4% PATCH 1 PATCH TOPICAL (08:26)
--- NOTE | 2024-01-24 09:00 | W.PN.HOSP.TC ---
Today's Communication/Plan
-
Cleared by psychiatry for discharge today
Assessment / Plan
Assessment / Plan
HPI: 68-year-old female past medical history of hypertension, hypothyroidism, depression, seizures, p/w change in mental status. Patient was found outside her home. Her neighbor has seen this happen before and was able to redirect her. Patient
unable to tell ER why she was here. She was fixated on receiving a mailing envelope and was telling the ER about the [employer] [place] [facility] the [place]. She talked about her daughter and her mother and about executing a bill. She denies any symptoms or
drug use. Patient stated that her sister thinks she has schizophrenia. Patient denies any urinary symptoms, nausea vomiting or diarrhea or cough. Denies fevers or chills.
A/P:
# Acute psychosis (Encephalopathy ruled out)
Patient was initially noted to have erythema redness of LLE by the ER and was given vancomycin, however this has resolved, doubt cellulitis hence stopped further vanc
ruled out infectious etiology: UA clean, CT head unrevealing, CRP WNL
Tylenol, salicylates, alcohol level negative; UDS negative; TSH 5.04, FT4 at 1.51
Hold Adderall
Appreciate psychiatry input, continue Ativan 0.5 mg 4 times daily, resumed on Abilify 01/20, dose increased to 5 mg at bedtime as per psychiatry -will continue upon discharge
Continue medication adjustments as per psychiatry
Cleared by psychiatry for discharge today
#Cough
#Allergic rhinitis
COVID-negative, chest x-ray negative, continue antihistamines
#Left posterior rib/left pain
Suspect secondary to musculoskeletal strain versus contusion
She reports possibly falling recently
Left rib series negative
Continue lidocaine patch, tylenol prn
#Weight loss
Patient reports a 12 pound weight loss in 1 month
Encourage oral intake, follow-up with PCP for outpatient workup
# Hypokalemia secondary to hydrochlorothiazide
Repleted and resolved
# Anxiety/depression
Continue sertraline
Ativan dosage as above
# ADHD
Hold Adderall
# Essential hypertension
Continue amlodipine
Blood pressure elevated, resume hydrochlorothiazide upon discharge
# Hypothyroidism
Continue levothyroxine
# History of seizures
Continue gabapentin
DVT prophylaxis�subcu Lovenox
Full code
Physical Exam
General: No acute distress
HEENT: Normocephalic, Atraumatic, EOMI, MMM
Respiratory: Clear to Auscultation bilaterally
Cardiac: Normal S1/S2, Regular Rate and Rhythm
GI: Soft, Nontender, Nondistended, Normal Bowel Sounds
Extremities: No Clubbing, Cyanosis
Trace pedal edema
Neuro: Nonfocal/Grossly Intact
Psych: Delusional
Calm, cooperative
Anticipated Discharge: Today
Subjective/Interval History
-
Date of Service: January 24, 2024
Patient appears less anxious and teary today. She continues to have posterior rib/left sided back pain. Suspect musculoskeletal sprain versus contusion. No fever, no vomiting.
Objective Data
-
Vital Signs:
Vital Signs
Temp Pulse Resp BP Pulse Ox
97.9 F 77 18 138/92 97
01/24/24 07:00 01/24/24 07:00 01/24/24 07:00 01/24/24 07:00 01/24/24 07:00
I&O
01/23/24 01/24/24 01/25/24
06:59 06:59 06:59
Intake Total 1200 / 1200 1200 / 1200
Balance 1200 / 1200 1200 / 1200
--- NOTE | 2024-01-24 13:12 | CM ---
Chart reviewed and plan is to home today, per patient either Alesia or Bill will transport patient to home.
Plan; Home today no needs.
--- NOTE | 2024-01-24 13:42 | W.PN.UPDATE ---
Update Note
Progress Note Update
Pt seen, alert and oriented, sitting up in bed, in no distress. Speech continues to be mildly pressured, rambling. No overt delusions. Pt eager to return home to be with her dog and take care of bills, etc. Pt declined the option fo IOP or PHP,
prefers to follow up with her outpatient psychiatrist Dr Rodríguez. Tolerating Abilify 5 mg, no signs of EPS, states she slept well.
Imp: Unspecified psychosis, etiology unclear, improving
Rec: Pt appears psychiatrically stable for discharge home, with outpatient psychiatric follow-up.
Would continue current/existing medications: Zoloft 150 mg QD, Ativan 0.5 mg Q I D, Abilify 5 mg HS
--- NOTE | 2024-01-24 14:06 | W.DCSUMMARY ---
Discharge Summary
Discharge Data
Date of Admission: 01/18/24
Date of Discharge: 01/24/24
-
Pending Results: No
Hospital Course
Discharge diagnosis:
Acute psychosis of unclear etiology
Allergic rhinitis
Cough
Posterior left rib/left back pain
Weight loss
Hypokalemia
Anxiety/depression
Essential hypertension
Hypothyroidism
History of seizures
Consults: Psychiatry
Hospital course:
68-year-old female with a past medical history of ADHD, seizure disorder, hypothyroidism, anxiety/depression, and hypertension was admitted for acute confusion after being found wandering by her neighbor. Patient was seen in conjunction with
psychiatry. Head CT was negative for acute intracranial abnormality. Her thyroid function test were normal.
She is usually on Ativan 0.5 mg 4 times a day as needed at home. She was treated with Ativan 0.5 mg 4 times daily scheduled here. Initially she received risperidone, however psychiatry transitioned her to Abilify. Apparently she used to be on
Abilify, unclear why she stopped. Patient's confusion resolved on Abilify. Her dose was increased to 5 mg at bedtime.
Patient complained of cough. Infectious workup was negative, chest x-ray negative. Etiologies could be allergic rhinitis versus bronchitis. She received supportive treatment with antihistamines. She also complained of posterior left-sided rib
pain, and left back pain. Rib x-rays were negative. Suspect she has a musculoskeletal strain. Was treated with Tylenol and lidocaine patch, and can continue this upon discharge.
Patient is medically stable and cleared by psychiatry for discharge. She needs to follow-up with her usual psychiatrist in the office in 2-3 weeks, and her primary care doctor in 1 week.
Disposition: Home self-care
Discharge planning: Required 43 minutes
Discharge Plan
-
Patient Disposition: Home (Routine Discharge)
Discharge Diagnosis/Procedures: Acute confusion, unspecified psychosis etiology unclear, left back musculoskeletal strain, allergic rhinitis
Condition: Fair
Diet: Regular
Activity: As tolerated
Driving Restrictions: As prior to admission
Activity Restrictions/Additional Instructions:
Please make sure you take your thyroid medication first thing in the morning, and wait 1 hour before taking other medications or eating food.
Your thyroid medication needs to be taken on an empty stomach without any other medications for absorption.
Please follow-up with your primary care doctor in 1 week, and your usual psychiatrist in 1-2 weeks.
Referrals:
UNKNOWN - PT NOT,INTERVIEWE [Family Provider] -
Prescriptions:
New
sennosides [Senna Laxative] 8.6 mg Tablet
17.2 mg PO HS 30 Days Qty: 60 0RF
lidocaine 4 % Adhesive Patch,Medicated
1 patch topical DAILY Qty: 30 0RF
lorazepam 0.5 mg Tablet
0.5 mg PO QID 30 Days Qty: 120 0RF
pantoprazole 40 mg Tablet,Delayed Release (Dr/Ec)
40 mg PO DAILY Qty: 30 0RF
aripiprazole 5 mg Tablet
5 mg PO HS Qty: 30 0RF
acetaminophen 325 mg Tablet
650 mg PO Q4HPRN PRN (Reason: MILD PAIN/FEVER) 10 Days Qty: 60 0RF
Continued
levothyroxine 112 MCG tablet
112 mcg PO DAILY
amlodipine 5 MG tablet
5 mg PO DAILY
sertraline 50 mg Tablet
150 mg PO DAILY
cyclobenzaprine 10 mg Tablet
10 mg PO HS
fexofenadine 60 mg Tablet
60 mg PO BIDPRN PRN (Reason: allergies)
dextroamphetamine-amphetamine [Adderall] 20 mg Tablet
20 mg PO DAILYPRN PRN (Reason: for work days only)
Patient Comments:
01/18/2024: last filled 01/01/24, 30 tabs for 30 days from [facility]
gabapentin 300 mg Capsule
600 mg PO BID
magnesium oxide 400 mg magnesium Tablet
400 mg PO DAILY
hydrochlorothiazide 12.5 mg tablet
12.5 mg PO DAILY
Discontinued
lorazepam 0.5 MG tablet
0.5 mg PO QIDPRN PRN (Reason: anxiety)
Patient Comments:
01/18/2024: last filled 01/06/24, 120 tabs for 30 days from [facility]
hydrocodone-acetaminophen 5-325 mg tablet
1 tab PO Q6HPRN PRN (Reason: moderate pain)
Patient Comments:
01/18/2024: last filled 12/21/23, 10 tabs for 3 days from [facility]
Discharge Orders:
Discharge Patient (As Directed); Ordered 01/24/24
Ordered By: Seymour Carlos
Discharge Date and Time
Discharge Date/Time: 01/24/24 16:00
Print Language: TURKMEN
--- NOTE | 2024-01-24 14:43 | PN.CDI ---
CDI
- -
CDI:
Physician Documentation Request
Admit Date: 01/18/24 23:13
Dear Doctor Do,
Clinical Indicators:
Height: 5 ft 3 in
Weight: 107 lb 3 0z
BMI: 19.0
01/22 note, 'Pt appears to have lost 12 lbs (10% wt change/1 month)-significant.'
If possible, please provide an associated diagnosis related to the abnormal BMI < or = to 19), such as:
Weight loss
BMI is not significant
Other
Use of terms such as suspected, likely, concern for, or probable (associated with a specific diagnosis that is being evaluated, monitored, or treated as if it exists) are acceptable and can be coded in the inpatient setting, when documented at the
time of discharge.
Thank you,
Elvia Rhodes RN BSN
CDI Specialist
available via tiger text
Please use your independent medical judgment in providing your response.
[2024-01-24 15:00] VITALS: BP 123/86
--- NOTE | 2024-01-24 15:36 | PTCARENOTE ---
Rn administrative operations coordinator- Called to krys Yu neighbor at [phone] to fern picker patient. Gigi concerned that no one has spoken with patient's son and he states that patient lost her id and her wallet. Spoke with patient who was visisting with a
marla. Patient states that she would rather not have her son called that we could call her sister who is at work. Patient does not have her sisters phone number. This nurse spoke with Afia, the patient's renal case manager who states that patients
sister was her yesterday visiting patient. Called Bill back and informed that patient doesn't want us to call son and that patient had a visit from her sister yesterday. Patient states that she thinks she has a credit card at home for her
medications. Bill states that he will come at 1600.
== END 2024-01-24 16:00 | disposition home or self-care (01) | DRG 885 ==
LOC: 4 WEST ACU 23:13
PROVIDERS: Internal Medicine; Nurse Practitioner Family; ADMITTING PHYSICIAN Hospitalist; ATTENDING PHYSICIAN Family Medicine; CONSULT PHYSICIAN Psychiatry & Neurology Psychiatry; EMERGENCY PHYSICIAN Student in an Organized Health Care Education/Training Program
DX: F23 Brief psychotic disorder (principal); Z68.1 Body mass index [BMI] 19.9 or less, adult; F13.939 Sedative, hypnotic or anxiolytic use, unspecified with withdrawal, unspecified; I10 Essential (primary) hypertension; E03.9 Hypothyroidism, unspecified; F32.A Depression, unspecified; R56.9 Unspecified convulsions; G89.29 Other chronic pain; M79.18 Myalgia, other site; F29 Unspecified psychosis not due to a substance or known physiological condition; R63.4 Abnormal weight loss; R07.81 Pleurodynia; F22 Delusional disorders; J30.9 Allergic rhinitis, unspecified; E87.6 Hypokalemia; T50.2X5A Adverse effect of carbonic-anhydrase inhibitors, benzothiadiazides and other diuretics, initial encounter; Y92.9 Unspecified place or not applicable; F41.9 Anxiety disorder, unspecified; F90.9 Attention-deficit hyperactivity disorder, unspecified type; R01.1 Cardiac murmur, unspecified; Z90.49 Acquired absence of other specified parts of digestive tract; Z98.1 Arthrodesis status; Z88.1 Allergy status to other antibiotic agents; Z88.0 Allergy status to penicillin; Z11.52 Encounter for screening for COVID-19
CPT/HCPCS: 70450; 71045; 71101; 80053; 80143; 80179; 80306; 81003; 81015; 82077; 82977; 83735; 84439; 84443; 85025; 86140; 87070; 87811; 93005; 96365; 97116; 97162; 97167; 97530; 97535; 99285

== ENCOUNTER 2024-01-30 17:40 | Inpatient (IN) | payer MEDICARE, OTHER, SELFPAY ==
[2024-01-30] VITALS (11 sets, daily range): BP systolic 139–174; BP diastolic 77–105; BMI 19.3
[2024-01-30 12:30] LABS: % Basophils 0.2 % (0-2); % Immature Granulocytes 0.4 % (0-0.5); % Lymphocytes 4.5 % (20.5-51.1); % Monocytes 5.6 % (1.7-9.3); % Neutrophils 89.3 % (42.2-75.2); Absolute Immature Granulocytes 0.1 10^3/uL (0-0.05); Absolute Lymphocytes 0.6 10^3/uL (1.2-3.4); Absolute Monocytes 0.8 10^3/uL (0.1-0.6); Absolute Neutrophils 12.5 10^3/uL (1.4-6.5); Hematocrit 40.4 % (37.0-47.0); Hemoglobin 13.7 g/dL (12.0-16.0); Mean Corp Hgb Conc. 33.9 g/dL (33.0-37.0); Mean Corpuscular Hgb 28.9 pg (27.0-31.0); Mean Corpuscular Volume 85.2 fL (81.0-99.0); Mean Platelet Volume 7.9 fL (7.4-10.4); Nucleated Red Blood Cells % 0 %; Platelet Count 324 10^3/uL (130-400); Red Blood Cell Count 4.74 10^6/uL (4.20-5.40); Red Cell Dist. Width 14.2 % (11.5-14.5)
[2024-01-30 12:59] LABS: Amphetamines Positive (Negative)
[2024-01-30 13:00] LABS: Barbiturates Negative (Negative); Benzodiazepines Positive (Negative); Buprenorphine Negative (Negative); Cocaine Negative (Negative); Marijuana Negative (Negative); Methadone Negative (Negative); Methamphetamines Negative (Negative); Opiates Negative (Negative); Phencyclidine Negative (Negative); Tricyclic Antidepressants Positive (Negative)
[2024-01-30 13:05] LABS: Urine Albumin 2+ (Neg - Trace); Urine Bilirubin 1+ (Negative); Urine Character Very Cloudy (Clear); Urine Color Brown; Urine Glucose Negative (Negative); Urine Ketone 1+ (Negative); Urine Leukocyte 2+ (Negative); Urine Nitrite Positive (Negative); Urine Occult Blood 4+ (Negative); Urine Specific Gravity 1.025 (<1.030); Urine Urobilinogen Negative (Neg - 1+)
[2024-01-30 13:08] LABS: Blood Urea Nitrogen 18 mg/dl (7-17); Calcium 10.4 mg/dl (8.4-10.2); Carbon Dioxide 28 mmol/L (22-30); Chloride 101 mmol/L (98-107); Estimated Creatinine Clearance 73 ml/min; Glucose 126 mg/dl (70-99); Potassium 3.5 mmol/L (3.5-5.1); Sodium 143 mmol/L (135-145); eGFR > 60.00
[2024-01-30 13:09] LABS: Alcohol None Detected
[2024-01-30 13:31] LABS: Fentanyl, Urine Negative (Negative)
[2024-01-30 13:55] LABS: Urine Amorphous Seen; Urine Urothelial Cell >30 /LPF (FEW)
[2024-01-30 13:58] LABS: Urine Bacteria Many (Negative); Urine White Cell 30-40 /HPF (0-5)
[2024-01-30] MEDS: CIPRO 200 MG 100 IV (16:03)
--- NOTE | 2024-01-30 16:12 | ED.GENMED ---
History of Present Illness
General
Chief Complaint: Change in Mental Status
Time Seen by Provider: 01/30/24 12:09
History of Present Illness
History of Present Illness:
68-year-old female presents the emergency department due to acute altered mental status. She was apparently outside her home looking for her dog concern that her dog had a neighbor stated the dog was apparently in a house the entire time. She
was admitted to this hospital earlier this month for acute psychosis and was discharged on Abilify which seemed to have stabilized her. At this time it is uncertain whether the patient is taking her meds as she cannot provide any history. She
appears disheveled with dry oral mucous membranes, she is oriented to year and place but disoriented to events.
Past History
Past History
ED Past Medical History: Seizures, Hypothyroidism, Psychiatric (Depression) and Other (Heart murmur)
ED Past Surgical History: Cholecystectomy (1994), Orthopedic (Spinal fusion/discectomy 1986), Tonsilectomy and Other (Sinus surgery)
Social History
Tobacco: Non-smoker
Alcohol: None
Drug: None
Personal: Single
Living: alone
Review of Systems
Review of Systems
Allergies reviewed?: Yes
All Other Systems: ROS reviewed and negative except as documented in HPI and ROS
Phy Exam
Physical Exam
Physical Exam:
GEN: Disheveled, appears to be in distress
HEENT: Oral mucosa dry, no scleral icterus, no nasal congestion
Cardiac: Regular rate and rhythm
Lung: No respiratory distress, no tachypnea
MSK: No gross deformity or injuries
Skin: Good color, no pallor or jaundice, no rashes
Neuro: AO x3; CN II-XII grossly intact. BUE strength 5/5 in all john, sensation intact and symmetric. BLE strength 5/5 in all john, sensation intact and symmetric
Psych: Calm, follows commands, significant difficulty formulating sentences
Course
Orders/Labs/Results
Orders:
Orders
01/30/24 12:19
Alcohol Urgent
Basic Metabolic Panel Urgent
Complete Blood Count/With Diff Urgent
Creatine Phosphokinase Urgent
Fentanyl, Urine Urgent
Urine Drug Abuse Screen Urgent
Date Specimen was Collected: 01/30/24
Time Specimen was Collected: 12:11
01/30/24 12:24
CT Head W/o Iv Contrast Urgent
Comment:
Reason For Exam: altered mental status
01/30/24 12:34
Urinalysis Reflex To Culture Urgent
Date Specimen was Collected: 01/30/24
Time Specimen was Collected: 12:32
Urine Microscopic Reflex Cult Urgent
Urine Culture Urgent
ADALGISA Source: U
Specimen Description:
Date Specimen was Collected: 01/30/24
Time Specimen was Collected: 12:32
01/30/24 15:53
Ciprofloxacin 200 mg/[id number] [Cipro 200 mg] 100 ml IV NOW
01/30/24 16:49
Lorazepam [Ativan] 1 mg IV NOW STA
01/30/24 17:16
Admit/Transfer Patient As Directed
Co-Sign Provider:
Level of Care: Inpatient admission
Assign to:: Medical/Surgical
Physician / Group: [email or web address]
Diagnosis: UTI complicated by exceesbation of psychosis symptoms
Reason for Hospitalization: HX Unspecified psychosis of unclear etiology vs acute infective encephalaothy
Expected length of stay greater than two midnights?: Yes
ELOS- Estimated Length of Stay in days: 3
I certify the patient meets the requirements for IP care: Yes
01/30/24 17:20
Code Status As Directed
Resuscitation Status: Full Code
Abnormal Lab Results
01/30/24 01/30/24
12:19 12:34
WBC 14.0 H 10^3/uL
(4.8-10.8)
Abs Immat Gran (auto) 0.1 H 10^3/uL
(0-0.05)
Absolute Neuts (auto) 12.5 H 10^3/uL
(1.4-6.5)
Absolute Lymphs (auto) 0.6 L 10^3/uL
(1.2-3.4)
Absolute Monos (auto) 0.8 H 10^3/uL
(0.1-0.6)
Neutrophils % 89.3 H %
(42.2-75.2)
Lymphocytes % 4.5 L %
(20.5-51.1)
BUN 18 H mg/dl
(7-17)
Creatinine 0.4 L mg/dL
(0.6-1.0)
Glucose 126 H mg/dl
(70-99)
Calcium 10.4 H mg/dl
(8.4-10.2)
Creatine Kinase 257 H U/L
(30-135)
Urine Ketones 1+ A
(Negative)
Ur Occult Blood Reflex 4+ A
(Negative)
Urine Nitrite (Reflex) Positive A
(Negative)
Urine Bilirubin 1+ A
(Negative)
Leukocyte Esterase Rfl 2+ A
(Negative)
Urine RBC 3-6 A /HPF
(0-2)
Urine WBC (Reflex) 30-40 A /HPF
(0-5)
Urine Bacteria (Reflex) Many A
(Negative)
Urine Albumin (Reflex) 2+ A
(Neg - Trace)
Ur Tricyclics Screen Positive H
(Negative)
Ur Amphetamines Screen Positive H
(Negative)
U Benzodiazepines Scrn Positive H
(Negative)
01/30/24 12:19
01/30/24 12:19
Vital Signs
Initial and Last Documented VS:
Initial Vital Signs
Temp Pulse Resp BP Pulse Ox
97.6 F 89 16 139/91 99
01/30/24 12:11 01/30/24 12:11 01/30/24 12:11 01/30/24 12:11 01/30/24 12:11
Last Documented Vital Signs
Temp Pulse Resp BP Pulse Ox
97.6 F 81 15 160/91 100
01/30/24 12:11 01/30/24 17:15 01/30/24 17:15 01/30/24 16:00 01/30/24 17:15
MDM/Problems Addressed
MDM/Problems Addressed:
Patient appears to be well acutely psychotic, similar to his presentation earlier this month, unclear what the patient has been taking her oral medications at home as she cannot provide this history. She does have evidence for UTI and leukocytosis
on labs thus will treat with IV antibiotics as this could be provoking her acute psychosis. She is not suitable for discharge thus will admit on IV antibiotics. Ciprofloxacin was given due to allergy profile
*Critical Care Note
Total Time (30-74mins, 75-104mins- exclusive of procedures): Not Applicable
ED Attending Note
-
Portions of this chart may have been created with voice recognition software.� Occasional wrong word or��sound alike� substitutions may have occurred due to the inherent limitations of voice recognition software.
Discharge Plan
Departure
Patient Disposition: Admit
Date of Disposition: 01/30/24
Time of Disposition: 16:17
Admit to: Med/Surg
Presentation/result/management discussed w/ accepting MD/DO: Hospitalist
Discharge Problem:
Acute psychosis, Bacteriuria with pyuria
Interventions
Interventions:
*Risk Screen - Suicide Last Done: 01/30/24 12:11
*General Assessment Last Done: 01/30/24 12:11
*Neglect/Abuse Screening Last Done: 01/30/24 12:11
ED- Fall Risk Assessment Last Done: 01/30/24 12:11
ED- Pulmonary Assessment Last Done: 01/30/24 12:37
ED-Psychological Assessment Last Done: 01/30/24 12:11
ED- Neurological Assessment Last Done: 01/30/24 12:11
ED- Cardiac Assessment Last Done: 01/30/24 12:37
ED Swallowing Screen Last Done: 01/30/24 12:11
[2024-01-30 16:13] LABS: Creatine Phosphokinase 257 U/L (30-135)
[2024-01-30] MEDS: ATIVAN 1 MG IV (16:51)
--- NOTE | 2024-01-30 17:10 | HPS.HSE ---
Family Physician
-
Family Physician: INTERVIEWE UNKNOWN - PT NOT
Chief Complaint
-
AMS
History of Present Illness
HPI
68F HX Unspecified psychosis unclear etiology. HTN, hypothyroidism, depression, seizures seen at ER
- acute altered mental status
- apparently outside her home looking for her dog concern that her dog had a neighbor stated the dog was apparently in a house the entire time.
- Recent admission 01/17- 01/23 for acute psychosis and was discharged on Abilify which seemed to have stabilized her.
At ER : She appears disheveled with dry oral mucous membranes, she is oriented to year and place but disoriented to events.
Medical History
Past Medical History
Past Medical History: Reports Other ( hypertension, hypothyroidism, depression, seizures)
Past Surgical History: Reports Other (Cholecystectomy (1994), Orthopedic (Spinal fusion/discectomy 1986), Tonsilectomy and Other (Sinus surgery))
Social History
Tobacco: Non-smoker
Alcohol: None
Drug: None
Family History
Family History: Not pertinent
Allergies / Home Medications
Allergies reflects when Allergies were last updated in [email or web address].
Home Medications with original date entered in [email or web address]
Allergy/Medication List:
Allergies
Allergy/AdvReac Type Severity Reaction Status Date / Time
penicillin G Allergy Severe Hives Verified 01/18/24 20:28
Penicillins Allergy Severe Hives Verified 01/18/24 20:28
butorphanol [From Stadol] Allergy Intermediate Unknown Verified 01/18/24 20:28
Cephalosporins Allergy Unknown Verified 01/18/24 20:28
Home Medications
levothyroxine 112 mcg tablet 112 mcg PO DAILY Thyroid 05/22/21
lorazepam 0.5 mg tablet 0.5 mg PO QIDPRN PRN anxiety 01/29/22
amlodipine 5 mg tablet 5 mg PO DAILY Blood pressure 01/30/22
cyclobenzaprine 10 mg tablet 10 mg PO HS 04/02/23
dextroamphetamine-amphetamine 20 mg tablet (Adderall) 20 mg PO DAILYPRN PRN for work days only 04/02/23
fexofenadine 60 mg tablet 60 mg PO BIDPRN PRN allergies 04/02/23
gabapentin 300 mg capsule 600 mg PO BID 04/02/23
magnesium oxide 400 mg PO DAILY 04/02/23
sertraline 50 mg tablet 150 mg PO DAILY 04/02/23
hydrochlorothiazide 12.5 mg tablet 12.5 mg PO DAILY 01/18/24
hydrocodone 5 mg-acetaminophen 325 mg tablet 1 tab PO Q6HPRN PRN moderate pain 01/18/24
Review of Systems
-
History Source: Patient
A 12 point ROS was completed and negative except as noted: Yes
Constitutional: Reports No Symptoms
EENT: Reports No Symptoms
Respiratory: Reports No Symptoms
Cardiac: Reports No Symptoms
Abdomen/GI: Reports No Symptoms
: Reports No Symptoms
Musculoskeletal: Reports No Symptoms
Skin: Reports No Symptoms
Neurological: Reports No Symptoms
Endocrine: Reports No Symptoms
Hematologic/Lymphatic: Reports No Symptoms
Psych: Reports See HPI
Physical Exam
Vital Signs
Vital Signs
Temp Pulse Resp BP Pulse Ox
97.6 F 88 16 160/91 99
01/30/24 12:11 01/30/24 17:00 01/30/24 17:00 01/30/24 16:00 01/30/24 17:00
Physical Exam
General: No Apparent Distress and Other (disheveled)
HEENT: NormoCephalic, Moist mucous membranes (dry OM ) and Atraumatic
Respiratory: Clear
Cardiac: S1/S2 and Regular Rhythm; No Murmur or Rub
GI: Soft, Non Tender, Non Distended and Normal Bowel Sounds; No Organomegaly
Rectal: Deferred by Provider
Musculoskeletal: No Clubbing, No Cyanosis and No Edema
Skin: No Rash
Neuro: Nonfocal/grossly intact
Laboratory Results
-
01/30/24 12:19
01/30/24 12:19
Data Reviewed
-
CT Scan: Report Reviewed by me
Lab Data: Labs Reviewed by me
Old Records: Reviewed
Impression/Plan
-
Vital Signs
Temp Pulse Resp BP Pulse Ox
97.6 F 88 16 160/91 99
01/30/24 12:11 01/30/24 17:00 01/30/24 17:00 01/30/24 16:00 01/30/24 17:00
data
01/30/24 01/30/24
12:19 12:34
Urine Nitrite (Reflex) Positive A
Leukocyte Esterase Rfl 2+ A
Urine WBC (Reflex) 30-40 A
Ur Squamous Epith Cells 3-5
Ur Tricyclics Screen Positive H
Ur Amphetamines Screen Positive H
U Benzodiazepines Scrn Positive H
Alcohol, Quantitative None detected
UCx sent
HCT
1. No acute intracranial abnormalities appreciated.
2. Mild atrophy and mild chronic small vessel change.
3. No significant change compared to prior study.
Last hospitalist admission:
Date of Admission: 01/18/24 - Date of Discharge: 01/24/24
Discharge diagnosis:
Acute psychosis of unclear etiology
Allergic rhinitis
Cough
Posterior left rib/left back pain
Weight loss
Hypokalemia
Anxiety/depression
Essential hypertension
Hypothyroidism
History of seizures
ASSESSMENT & PLAN
UTI complicated by exacerbation of psychosis symptoms
HX Unspecified psychosis of unclear etiology
Stable Level of consciousness and normal attention span against clinical encephalopathy
Suspect underlying primary psychiatric illness
HX PCN allergy
- NEG HCT
- IVF and Treat UTI
- Empiric IV Aztreonam in place of Fluoroquinolone due to report of encephalopathy with Fluoroquinolone especially Levofloxacin
- Observe MS
Unspecified psychosis of uncertain etiology unclear
Strong suspect underlying primary psychiatric illness
Possibly benzo withdrawal, stimulant-induced, vs psychiatric illness
- c/w Abilify, Sertraline, Ativan
- Psych consult
Anxiety/depression
-Continue sertraline
- c/w ASSOCIATE TEAM PHYSICIAN PRN Ativan due to risk of WDS
ADHD
- cont Adderall
Essential hypertension
-Continue amlodipine
-Continue hydrochlorothiazide
Hypothyroidism
-Continue levothyroxine
History of seizures
-Continue gabapentin
Full code
DVT prophylaxis�heparin
IP MS
[2024-01-30] MEDS: AZACTAM 1000 MG IV (20:37)
[2024-01-30] MEDS: STERILE WATER FOR INJECTION 10 ML IV (20:37)
[2024-01-30] MEDS: HEPARIN 5000 UNITS SC (20:39)
[2024-01-30] MEDS: NEURONTIN 600 MG PO (20:40)
[2024-01-30] MEDS: SENOKOT 17.2 MG PO (20:42)
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
[2024-01-30] MEDS: ATIVAN 0.5 MG PO (21:46)
[2024-01-31] MEDS: AZACTAM 1000 MG IV ×3 (03:36→20:22)
[2024-01-31] MEDS: STERILE WATER FOR INJECTION 10 ML IV ×3 (03:36→20:22)
[2024-01-31] MEDS: SENOKOT-S 1 TABLET PO (05:34)
[2024-01-31] MEDS: SYNTHROID 112 MCG PO (05:34)
[2024-01-31 06:00] VITALS: BMI 19.2
[2024-01-31 07:30] VITALS: BP 149/89
--- NOTE | 2024-01-31 07:48 | W.PN.HOSP.TC ---
Today's Communication/Plan
-
see A/P
Assessment / Plan
Assessment / Plan
HPI: 68 yo F PMH unspecified psychosis unclear etiology, HTN, hypothyroidism, depression, seizure; p/w altered mental status.
She apparently stated her dog had but a neighbor stated the dog was apparently in a house the entire time.
Of note, there was a recent admission 01/17- 01/23 for acute psychosis and she was discharged on Abilify which seemed to have stabilized her.
In ER : She was disheveled with dry oral mucous membranes, oriented to year and place but disoriented to events.
A/P:
# Acute metabolic encephalopathy, could be UTI with exacerbation of psychosis
CT head negative
follow urine culture, cont empiric Azactam
# Unspecified psychosis of uncertain etiology
# Anxiety/depression
c/w GUNNER'S MATE G Abilify, Sertraline, Ativan
Psych consult
# ADHD
cont Adderall
# Essential hypertension
Continue amlodipine
Continue hydrochlorothiazide
# Hypothyroidism
Continue levothyroxine
Check TSH reflex FT4
# History of seizures
Continue gabapentin
Full code
DVT prophylaxis�lovenox SQ
DW RN
Anticipated Discharge: 24 - 48 hours
Subjective/Interval History
-
Date of Service: January 31, 2024
Objective Data
-
Labs:
Laboratory Results
01/31/24
07:19
WBC Pending
Hgb Pending
Hct Pending
Plt Count Pending
Sodium Pending
Potassium Pending
Chloride Pending
Carbon Dioxide Pending
BUN Pending
Creatinine Pending
Glucose Pending
Calcium Pending
Vital Signs:
Vital Signs
Temp Pulse Resp BP Pulse Ox
36.2 C 92 16 144/83 100
01/30/24 23:30 01/30/24 23:30 01/30/24 23:30 01/30/24 23:30 01/30/24 23:30
I&O
01/30/24 01/31/24 02/01/24
06:59 06:59 06:59
Intake Total 480 / 480
Output Total 1440 / 1440
Balance -960 / -960
Review of Systems
-
All other systems: Reviewed and negative
Genitourinary: Reports Dysuria
Physical Exam
-
General: Well Developed, Well Nourished, No Apparent Distress, Comfortable and Conversant
HEENT: Normocephalic, Atraumatic and Moist Mucous Membranes
Respiratory: Clear to Auscultation and Non Labored Respirations; Negative Accessory Resp Muscle Use
Cardiac: Regular Rhythm and S1/S2
GI: Soft, Nontender, Nondistended and Normal Bowel Sounds
Musculoskeletal: No Clubbing and No Cyanosis
Skin: Negative Rash or Ulcers
Neuro: Awake, Alert and Oriented
Psych: Calm and Other (circumferential speech ); Negative Intact Judgement/Insight
Data Reviewed
-
CT Scan: Report Reviewed by me
Labs: Labs Reviewed by me
[2024-01-31] MEDS: NEURONTIN 600 MG PO ×2 (07:50→20:22)
[2024-01-31] MEDS: ORETIC 12.5 MG PO (07:50)
[2024-01-31] MEDS: ZOLOFT 150 MG PO (07:51)
[2024-01-31] MEDS: HEPARIN 5000 UNITS SC (07:51)
[2024-01-31] MEDS: NORVASC 5 MG PO (07:51)
[2024-01-31] MEDS: MIRALAX 17 GRAMS PO (08:05)
[2024-01-31] MEDS: KCL 40 MEQ PO (08:11)
[2024-01-31 08:48] LABS: Blood Urea Nitrogen 11 mg/dl (7-17); Calcium 9.5 mg/dl (8.4-10.2); Carbon Dioxide 31 mmol/L (22-30); Chloride 95 mmol/L (98-107); Estimated Creatinine Clearance 70 ml/min; Glucose 89 mg/dl (70-99); Potassium 3.5 mmol/L (3.5-5.1); Sodium 138 mmol/L (135-145); eGFR > 60.00
[2024-01-31 09:10] LABS: Hematocrit 37.8 % (37.0-47.0); Hemoglobin 12.4 g/dL (12.0-16.0); Mean Corp Hgb Conc. 32.8 g/dL (33.0-37.0); Mean Corpuscular Hgb 28.8 pg (27.0-31.0); Mean Corpuscular Volume 87.7 fL (81.0-99.0); Mean Platelet Volume 8.7 fL (7.4-10.4); Platelet Count 319 10^3/uL (130-400); Red Blood Cell Count 4.31 10^6/uL (4.20-5.40); Red Cell Dist. Width 14.3 % (11.5-14.5); White Blood Cell Count 9.6 10^3/uL (4.8-10.8)
[2024-01-31 09:35] LABS: TSH Reflex To Free T4 9.62 uIU/ml (0.47-4.68)
[2024-01-31 10:04] LABS: Free T4 1.35 ng/dl (0.78-2.19)
[2024-01-31] MEDS: ADDERALL 20 MG PO (12:53)
[2024-01-31 15:00] VITALS: BP 138/89
--- NOTE | 2024-01-31 15:25 | CM ---
Addendum entered by Kanika Monte 01/31/24 16:17:
CM received return call from patients sisterHenry ([phone]). Per Henry, patient resides alone in a first floor condo, no DME. Henry reports she spoke to her sister this morning, is not making any sense, reports her son Fantasma is - per
Henry, son is alive. Sister reports her sister has been inpatient psych about a year and a half ago- [facility], for about 3-4 weeks- psychiatrist there diagnosed patient as Schizophrenic, put on medication (per sister). Henry reports she is
getting another call and will call CM back.
Original Note:
Patient seen bedside, unable to complete assessment questions. Patient provided CM with sister, Henry Quarles ([phone]) contact information. Per patient, sister is driving to her house to look for her dog, then patient reporting seeing her dog
in the hallway with a deer, making comments that do not make sense. Patient reports her son in 2018, then reports he dies in 2014, then talking about visit her son and his fiance. Per previous CM notes, patient resides independently, no device
used. CM placed call to sister, Henry, left voicemail. CM placed call primary contact, son, Fantasma, left voicemail. CM placed call to secondary contact, Alesia. Per Alesia, she had thought patient no longer wanted Alesia to be on contact list. CM will confirm
with patient Alesia can remain contact. Per Alesia, she does not want to remain a contact, Alesia can no longer help patient and has her own issues she is dealing with. CM will continue to follow for all discharge planning needs.
Plan; await return call from sister, Psych consulted.
[2024-01-31] MEDS: LOVENOX 40 MG SC (17:19)
[2024-01-31] MEDS: SENOKOT 17.2 MG PO (20:22)
[2024-01-31] MEDS: ATIVAN 0.5 MG PO (20:22)
[2024-01-31 23:30] VITALS: BP 128/84
--- NOTE | 2024-01-31 23:58 | CON.MD ---
Consultation - Medical
-
68 yr old F with PMH of HTN, hypothyroidism, seizures, and ADHD/mood disorder. Recently here for altered mental status with psychosis & discharged on Abilify 5mg daily. Unclear whether psychosis is due to an underlying psychotic disorder or a
delirium as pt has never been able to provide clear history in that regard. She did clear on discharge, but this was after starting Abilify and also resuming ativan (last fill 0.5mg #120 tabs on 01/05) which she reported at the time as not having.
She reported today that following discharge she was not able to fill her prescriptions though was unable to clarify which prescriptions specifically.
As per cliff on 01/19/24: 'Presented with bizarre behavior - fixated on her mail, possibly delusions with talking about the '[place]'. Workup medically thus far negative, it seems that a neighbor saw pt wandering outside which
prompted her coming to ED. Reviewed prior records at , it seems that she has some sort of mood history but details are unclear. As per Dr. Valdes's evaluation in 2021, pts sister at that time reported that pt has had a history of mood instability
for much of her life, however was never hospitalized psychiatrically. At that time, sister reported that she thinks pt has BPD & PTSD and sister at that time reported that she has seen pt behave this way in the past as well (at that time pt was
presenting similarly).
Pt is poor historian and is difficult to interview - thought process is loose in association, speech is logorrheic though easily interuptible. Needs frequent redirection when answering questions as becomes derailed almost immediately when
responding. Appears paranoid, at times looking around suspiciously, often starts whispering as if someone is trying to listen in on what she is saying. Is oriented however unable to meaningfully explain why she is in the hospital - starts talking
about a group of men with some sort of nefarious plans, then says something about a 'figurehead', is very difficult to understand as content of speech is loose in association and seems delusional in nature.
It appears that she is prescribed Adderall IR 20mg once a day and ativan 0.5mg QID (2mg daily total). Her most recent fill of ativan was 3 days early as per PDMP, however other months fills generally on time or few days late so not filling early
consistently/frequently.'
Unspecified mood d/o w/ psychosis (r/o bipolar I r/o schizoaffective r/o MDD with psychosis) vs benzodiazepene withdrawal - I do suspect the latter but cannot r/o a psychiatric d/o at this time
MSE: cooperative,speech is logorrheic,mood is anxious, affect is anxious and at time suspicious, thought process is loose in association, thought content: denies SI/HI, presents which delusions including paranoia. Grossly oriented to time and place.
Memory not formally tested. Insight poor. Judgement poor
1. Ativan 0.5mg QID (changing from PRN)
- Given that the timeline of delirium from benzodiazepene w/d coincides with pts most recent discharge, as well as her report on last admission on not having anymore ativan (2 weeks+ early from next fill) cannot rule out benzo w/d as cause of
presentation. Has not been under care of psychiatrist nor any hx of inpatient admissions, and multiple prior admissions here with no psychosis nor any antipsychotics or mood stabilizers on board. Her reported behavior of wandering outside and loose
logorrheic presentation would be consistent with early delirium of benzo withdrawal and this has occurred a second time now after stopping ativan.
2. Resume Abilify 5mg
3. Stop Adderall - regardless of underlying cause stimulant can acutely worsen psychotic sxs
4. Once patient clears a bit will attempt to clarify further history so as to determine longer term management and ideally prevent further readmissions
[2024-02-01] MEDS: STERILE WATER FOR INJECTION 10 ML IV (03:50)
[2024-02-01] MEDS: AZACTAM 1000 MG IV (03:50)
[2024-02-01] MEDS: SYNTHROID 112 MCG PO (05:29)
[2024-02-01 06:00] VITALS: BMI 19.6
[2024-02-01 07:00] VITALS: BP 138/76
[2024-02-01 07:09] LABS: Hematocrit 35.6 % (37.0-47.0); Hemoglobin 11.9 g/dL (12.0-16.0); Mean Corp Hgb Conc. 33.4 g/dL (33.0-37.0); Mean Corpuscular Hgb 29.7 pg (27.0-31.0); Mean Corpuscular Volume 88.8 fL (81.0-99.0); Mean Platelet Volume 8.6 fL (7.4-10.4); Platelet Count 294 10^3/uL (130-400); Red Blood Cell Count 4.01 10^6/uL (4.20-5.40); Red Cell Dist. Width 14.4 % (11.5-14.5); White Blood Cell Count 6.6 10^3/uL (4.8-10.8)
[2024-02-01 07:52] LABS: Blood Urea Nitrogen 10 mg/dl (7-17); Calcium 9.3 mg/dl (8.4-10.2); Carbon Dioxide 31 mmol/L (22-30); Chloride 98 mmol/L (98-107); Creatine Phosphokinase 174 U/L (30-135); Estimated Creatinine Clearance 71 ml/min; Glucose 90 mg/dl (70-99); Magnesium 1.9 mg/dl (1.6-2.3); Potassium 3.9 mmol/L (3.5-5.1); Sodium 138 mmol/L (135-145); eGFR > 60.00
[2024-02-01] MEDS: ZOLOFT 150 MG PO (09:10)
[2024-02-01] MEDS: NEURONTIN 600 MG PO ×2 (09:10→21:08)
[2024-02-01] MEDS: ORETIC 12.5 MG PO (09:11)
--- NOTE | 2024-02-01 09:15 | W.PN.HOSP.TC ---
Addendum entered and electronically signed by Aby Waterman MD 02/01/24 13:58:
# Underweight
Original Note:
Today's Communication/Plan
-
see A/P
Assessment / Plan
Assessment / Plan
HPI: 68 yo F PMH unspecified psychosis unclear etiology, HTN, hypothyroidism, depression, seizure; p/w altered mental status.
She apparently stated her dog had but a neighbor stated the dog was apparently in a house the entire time.
Of note, there was a recent admission 01/17- 01/23 for acute psychosis and she was discharged on Abilify which seemed to have stabilized her.
In ER : She was disheveled with dry oral mucous membranes, oriented to year and place but disoriented to events.
A/P:
# Acute metabolic encephalopathy, could be UTI with exacerbation of psychosis
CT head negative
Urine culture with pansensitive E coli,
empiric Azactam to Ancef (pt has allergy listed to PCN- reaction hives; and allergy listed to cephalosporin which probably was documented due to potential cross reactivity). Doubt true allergy to cephalosporin, hence will give trial of Ancef while
in the hospital and will observe closely
# Unspecified psychosis of uncertain etiology
# Anxiety/depression
c/w BATCH DUMPER Abilify, Sertraline, Ativan
Psych consulted
# ADHD
cont Adderall
# Essential hypertension
Continue amlodipine
Continue hydrochlorothiazide
# Hypothyroidism
Continue levothyroxine
Check TSH reflex FT4
# History of seizures
Continue gabapentin
Full code
DVT prophylaxis�lovenox SQ
DW RN
total time spent 51 min
Anticipated Discharge: 24 - 48 hours
Subjective/Interval History
-
Date of Service: February 01, 2024
Objective Data
-
Labs:
Laboratory Results
02/01/24
06:33
WBC 6.6
Hgb 11.9 L
Hct 35.6 L
Plt Count 294
Sodium 138
Potassium 3.9
Chloride 98
Carbon Dioxide 31 H
BUN 10
Creatinine 0.5 L
Glucose 90
Calcium 9.3
Vital Signs:
Vital Signs
Temp Pulse Resp BP Pulse Ox
36.7 C 82 18 138/76 97
02/01/24 07:00 02/01/24 07:00 02/01/24 07:00 02/01/24 07:00 02/01/24 07:00
I&O
01/31/24 02/01/24 02/02/24
06:59 06:59 06:59
Intake Total 480 / 480 1260 / 1260
Output Total 1440 / 1440
Balance -960 / -960 1260 / 1260
Review of Systems
-
All other systems: Reviewed and negative
Psych: Reports Depressed
Physical Exam
-
General: Well Developed, Well Nourished, No Apparent Distress, Comfortable and Conversant
HEENT: Normocephalic, Atraumatic and Moist Mucous Membranes
Respiratory: Clear to Auscultation and Non Labored Respirations; Negative Accessory Resp Muscle Use
Cardiac: Regular Rhythm and S1/S2
GI: Soft, Nontender, Nondistended and Normal Bowel Sounds
Musculoskeletal: No Clubbing and No Cyanosis
Skin: Negative Rash or Ulcers
Neuro: Awake and Alert
Psych: Calm and Other (circumferential speech ); Negative Intact Judgement/Insight
Data Reviewed
-
CT Scan: Report Reviewed by me
Labs: Labs Reviewed by me
[2024-02-01] MEDS: ATIVAN 0.5 MG PO ×3 (09:27→21:09)
--- NOTE | 2024-02-01 10:14 | PN.CDI ---
CDI
- -
CDI:
Physician Documentation Request
Admit Date: 01/30/24 17:40
Dear Doctor Columba,
Please review the following and provide your response in the progress notes.
Clinical Indicators:
Height: 5' 3'
Weight: 110 lbs
BMI: 19.6
If possible, please provide an associated diagnosis related to the abnormal BMI, such as:
Underweight
Cachectic
BMI is not significant
Other
BMI < or = to 19.9
Underweight
Weight Loss
Cachectic
Anorexia
Use of terms such as suspected, likely, concern for, or probable (associated with a specific diagnosis that is being evaluated, monitored, or treated as if it exists) are acceptable and can be coded in the inpatient setting, when documented at the
time of discharge.
Thank you,
Rosie Drake RN, BSN
CDI Specialist
Available via [place] text
Please use your independent medical judgment in providing your response.
[2024-02-01] MEDS: ANCEF 5 IV ×2 (11:54→17:30)
[2024-02-01] MEDS: NORVASC 5 MG PO (11:54)
--- NOTE | 2024-02-01 12:32 | CM ---
Addendum entered by Afia Loza 02/01/24 12:36:
sister Henry Constantino [phone]
Original Note:
Chart reviewed and will await update and recommendation from psychiatry for discharge planning needs.
Plan; To follow with patient progress.
[2024-02-01] MEDS: STERILE WATER FOR INJECTION IV ×2 (17:23→21:05)
[2024-02-01] MEDS: ABILIFY 5 MG PO (17:30)
[2024-02-01] MEDS: LOVENOX 40 MG SC (17:31)
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
[2024-02-01] MEDS: SENOKOT 17.2 MG PO (21:09)
[2024-02-01 23:00] VITALS: BP 150/97
[2024-02-01] MEDS: TYLENOL 650 MG PO (23:31)
[2024-02-02] MEDS: ZYRTEC 5 MG PO (00:12)
[2024-02-02] MEDS: ANCEF 5 IV ×3 (02:29→18:12)
[2024-02-02] MEDS: STERILE WATER FOR INJECTION IV (02:43)
[2024-02-02] MEDS: SYNTHROID 112 MCG PO (05:50)
[2024-02-02 08:00] VITALS: BP 138/91
[2024-02-02] MEDS: ORETIC 12.5 MG PO (08:48)
[2024-02-02] MEDS: NEURONTIN 600 MG PO ×2 (08:48→20:21)
[2024-02-02] MEDS: NORVASC 5 MG PO (08:48)
[2024-02-02] MEDS: ZOLOFT 150 MG PO (08:49)
[2024-02-02] MEDS: ATIVAN 0.5 MG PO ×3 (08:50→22:18)
--- NOTE | 2024-02-02 09:13 | W.PN.HOSP.TC ---
Today's Communication/Plan
-
see A/P
Assessment / Plan
Assessment / Plan
HPI: 68 yo F PMH unspecified psychosis unclear etiology, HTN, hypothyroidism, depression, seizure; p/w altered mental status.
She apparently stated her dog had but a neighbor stated the dog was apparently in a house the entire time.
Of note, there was a recent admission 01/17- 01/23 for acute psychosis and she was discharged on Abilify which seemed to have stabilized her.
In ER : She was disheveled with dry oral mucous membranes, oriented to year and place but disoriented to events.
A/P:
# Acute metabolic encephalopathy, could be UTI with exacerbation of psychosis
CT head negative
Urine culture with pansensitive E coli,
empiric Azactam changed to Ancef (pt has allergy listed to PCN- reaction hives; and allergy listed to cephalosporin which probably was documented due to potential cross reactivity). Doubt true allergy to cephalosporin.
Pt has tolerated Ancef, cont
# Unspecified psychosis of uncertain etiology
# Anxiety/depression
Suspect benzo withdrawal per Psych
Changed Ativan 0.5mg PRN to ATC now TID
Resumed Abilify 5mg but pt appear unwilling to take
Stopped Adderall which per psych can acutely worsen psychotic sxs
Psych on board
# ADHD
Stopped Adderall which per psych can acutely worsen psychotic sxs
# Oral thrush
Start nystatin S/S
# Essential hypertension
Continue amlodipine
Continue hydrochlorothiazide
# Hypothyroidism
Continue levothyroxine
TSH 9.62, FT4 1.35, could be due to non-compliance or inadequate dose. Would not change dose now with concern of likely non-compliance
Recc outpt TFT follow up in 4-6 weeks
# History of seizures
Continue gabapentin
Full code
DVT prophylaxis�lovenox SQ
DW RN
DW Psych
Anticipated Discharge: 24 - 48 hours
Subjective/Interval History
-
Date of Service: February 02, 2024
Objective Data
-
Vital Signs:
Vital Signs
Temp Pulse Resp BP Pulse Ox
36.4 C 97 18 138/91 97
02/02/24 08:00 02/02/24 08:48 02/02/24 08:00 02/02/24 08:48 02/02/24 08:00
I&O
02/01/24 02/02/24 02/03/24
06:59 06:59 06:59
Intake Total 1260 / 1260 360 / 360
Balance 1260 / 1260 360 / 360
Review of Systems
-
EENT: Reports Other (oral thrush)
Physical Exam
-
General: Well Developed, Well Nourished, No Apparent Distress, Comfortable and Conversant
HEENT: Normocephalic, Atraumatic and Moist Mucous Membranes
Respiratory: Clear to Auscultation and Non Labored Respirations; Negative Accessory Resp Muscle Use
Cardiac: Regular Rhythm and S1/S2
GI: Soft, Nontender, Nondistended and Normal Bowel Sounds
Musculoskeletal: No Clubbing and No Cyanosis
Skin: Negative Rash or Ulcers
Neuro: Awake and Alert
Psych: Calm and Other (circumferential speech ); Negative Intact Judgement/Insight
Data Reviewed
-
CT Scan: Report Reviewed by me
Labs: Labs Reviewed by me
[2024-02-02] MEDS: ABILIFY PO (11:51)
[2024-02-02] MEDS: MYCOSTATIN ORAL SUSPENSION 5 ML PO ×3 (14:01→22:19)
[2024-02-02 15:00] VITALS: BP 142/100
[2024-02-02] MEDS: LOVENOX 40 MG SC (18:12)
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
[2024-02-02] MEDS: SENOKOT 17.2 MG PO (22:19)
[2024-02-02 23:46] VITALS: BP 138/82
[2024-02-03] MEDS: ANCEF 5 IV (02:19)
[2024-02-03] MEDS: CLARITIN 10 MG PO (02:33)
[2024-02-03] MEDS: SYNTHROID 112 MCG PO (05:46)
[2024-02-03 05:51] LABS: Hematocrit 35.8 % (37.0-47.0); Hemoglobin 11.7 g/dL (12.0-16.0); Mean Corp Hgb Conc. 32.7 g/dL (33.0-37.0); Mean Corpuscular Hgb 29.2 pg (27.0-31.0); Mean Corpuscular Volume 89.3 fL (81.0-99.0); Mean Platelet Volume 8.4 fL (7.4-10.4); Platelet Count 284 10^3/uL (130-400); Red Blood Cell Count 4.01 10^6/uL (4.20-5.40); Red Cell Dist. Width 14.3 % (11.5-14.5); White Blood Cell Count 5.4 10^3/uL (4.8-10.8)
[2024-02-03] MEDS: TYLENOL 650 MG PO ×2 (05:56→20:29)
[2024-02-03 06:19] LABS: Blood Urea Nitrogen 11 mg/dl (7-17); Carbon Dioxide 32 mmol/L (22-30); Chloride 100 mmol/L (98-107); Estimated Creatinine Clearance 71 ml/min; Glucose 91 mg/dl (70-99); Potassium 3.5 mmol/L (3.5-5.1); Sodium 143 mmol/L (135-145); eGFR > 60.00
[2024-02-03 07:49] VITALS: BP 134/70
[2024-02-03] MEDS: KCL 40 MEQ PO (09:08)
[2024-02-03] MEDS: MYCOSTATIN ORAL SUSPENSION 5 ML PO ×4 (09:09→22:22)
[2024-02-03] MEDS: ZOLOFT 150 MG PO (09:09)
[2024-02-03] MEDS: ORETIC 12.5 MG PO (09:09)
[2024-02-03] MEDS: ABILIFY PO (09:09)
[2024-02-03] MEDS: NEURONTIN 600 MG PO ×2 (09:09→20:25)
[2024-02-03] MEDS: NORVASC 5 MG PO (09:09)
[2024-02-03] MEDS: ATIVAN 0.5 MG PO ×3 (09:09→22:22)
--- NOTE | 2024-02-03 09:25 | W.PN.HOSP.TC ---
Today's Communication/Plan
-
see A/P
Assessment / Plan
Assessment / Plan
HPI: 68 yo F PMH unspecified psychosis unclear etiology, HTN, hypothyroidism, depression, seizure; p/w altered mental status.
She apparently stated her dog had but a neighbor stated the dog was apparently in a house the entire time.
Of note, there was a recent admission 01/17- 01/23 for acute psychosis and she was discharged on Abilify which seemed to have stabilized her.
In ER : She was disheveled with dry oral mucous membranes, oriented to year and place but disoriented to events.
A/P:
# Acute metabolic encephalopathy, could be UTI with exacerbation of psychosis
CT head negative
Urine culture with pansensitive E coli,
empiric Azactam changed to Ancef (pt has allergy listed to PCN- reaction hives; and allergy listed to cephalosporin which probably was documented due to potential cross reactivity). Doubt true allergy to cephalosporin.
s/p 3 days Abx, no further Abx needed
# Unspecified psychosis of uncertain etiology
# Anxiety/depression
Suspect benzo withdrawal per Psych
Changed Ativan 0.5mg PRN to ATC now TID
Resumed Abilify 5mg but pt appear unwilling to take
Stopped Adderall which per psych can acutely worsen psychotic sxs
Psych on board
# ADHD
Stopped Adderall which per psych can acutely worsen psychotic sxs
# Oral thrush
Started nystatin S/S
# Essential hypertension
Continue amlodipine
Continue hydrochlorothiazide
# Hypothyroidism
Continue levothyroxine
TSH 9.62, FT4 1.35, could be due to non-compliance or inadequate dose. Would not change dose now with concern of likely non-compliance
Recc outpt TFT follow up in 4-6 weeks
# History of seizures
Continue gabapentin
Full code
DVT prophylaxis�lovenox SQ
DW RN
DW Psych
total time spent 51 min
Anticipated Discharge: 24 - 48 hours
Subjective/Interval History
-
Date of Service: February 03, 2024
Objective Data
-
Labs:
Laboratory Results
02/03/24
05:12
WBC 5.4
Hgb 11.7 L
Hct 35.8 L
Plt Count 284
Sodium 143
Potassium 3.5
Chloride 100
Carbon Dioxide 32 H
BUN 11
Creatinine 0.4 L
Glucose 91
Calcium 9.0
Vital Signs:
Vital Signs
Temp Pulse Resp BP Pulse Ox
37.6 C 90 16 134/70 99
02/03/24 07:49 02/03/24 07:49 02/03/24 07:49 02/03/24 07:49 02/03/24 07:49
I&O
02/02/24 02/03/24 02/04/24
06:59 06:59 06:59
Intake Total 360 / 360 1200 / 1200
Balance 360 / 360 1200 / 1200
Review of Systems
-
All other systems: Reviewed and negative
Physical Exam
-
General: Well Developed, Well Nourished, No Apparent Distress, Comfortable and Conversant
HEENT: Normocephalic, Atraumatic and Moist Mucous Membranes
Respiratory: Clear to Auscultation and Non Labored Respirations; Negative Accessory Resp Muscle Use
Cardiac: Regular Rhythm and S1/S2
GI: Soft, Nontender, Nondistended and Normal Bowel Sounds
Musculoskeletal: No Clubbing and No Cyanosis
Skin: Negative Rash or Ulcers
Neuro: Awake and Alert
Psych: Calm and Other (circumferential speech ); Negative Intact Judgement/Insight
Data Reviewed
-
CT Scan: Report Reviewed by me
Labs: Labs Reviewed by me
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
[2024-02-03] MEDS: ABILIFY 2 MG PO (12:45)
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
[2024-02-03 16:52] VITALS: BP 121/77
[2024-02-03] MEDS: LOVENOX 40 MG SC (17:44)
[2024-02-03] MEDS: SENOKOT 17.2 MG PO (22:22)
[2024-02-03 23:45] VITALS: BP 125/81
[2024-02-04] MEDS: SYNTHROID 112 MCG PO (05:18)
[2024-02-04] MEDS: CLARITIN 10 MG PO (05:18)
[2024-02-04] MEDS: NORVASC 5 MG PO (08:05)
[2024-02-04] MEDS: ATIVAN 0.5 MG PO ×3 (08:05→21:33)
[2024-02-04] MEDS: ZOLOFT 150 MG PO (08:05)
[2024-02-04] MEDS: NEURONTIN 600 MG PO ×2 (08:05→21:33)
[2024-02-04] MEDS: ABILIFY 2 MG PO (08:05)
[2024-02-04] MEDS: ORETIC 12.5 MG PO (08:05)
[2024-02-04] MEDS: MYCOSTATIN ORAL SUSPENSION 5 ML PO ×4 (08:05→21:34)
[2024-02-04 08:10] VITALS: BP 162/85
[2024-02-04 08:50] LABS: Hematocrit 39.5 % (37.0-47.0); Hemoglobin 12.7 g/dL (12.0-16.0); Mean Corp Hgb Conc. 32.2 g/dL (33.0-37.0); Mean Corpuscular Hgb 29.3 pg (27.0-31.0); Mean Platelet Volume 8.4 fL (7.4-10.4); Platelet Count 308 10^3/uL (130-400); Red Blood Cell Count 4.34 10^6/uL (4.20-5.40); Red Cell Dist. Width 14.3 % (11.5-14.5); White Blood Cell Count 4.6 10^3/uL (4.8-10.8)
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
[2024-02-04 09:36] LABS: Blood Urea Nitrogen 10 mg/dl (7-17); Calcium 9.5 mg/dl (8.4-10.2); Carbon Dioxide 33 mmol/L (22-30); Chloride 101 mmol/L (98-107); Estimated Creatinine Clearance 71 ml/min; Glucose 98 mg/dl (70-99); Potassium 4.3 mmol/L (3.5-5.1); Sodium 143 mmol/L (135-145); eGFR > 60.00
--- NOTE | 2024-02-04 11:25 | VNURNOTE ---
Chart reviewed. Does not appear that there is a PCP per [place]. Unclear of skilled VN nurse need. No referral placed at this time. ADA Oreilly aware.
--- NOTE | 2024-02-04 12:23 | CM ---
Addendum entered by Afia Loza 02/04/24 12:41:
Patient has given casework manager permission to contact Gigi her friend and casework manager provided Bill with casework managerclinic office manager numbers regarding discharge planning.
Original Note:
brand protection manager spoke with patient this am and patient reports that patient's dog, Alonzo is doing well and that her neighbors at the [facility] are taking care of it. brand protection manager reached out to patient's emergency contact her son, Fantasma and still no
answer, patient has a daughter Zina who lives in [place], patient's sister Henry/Nuno former Radiologist at [facility] [employer] is not listed as contact but has provided her phone number, . brand protection manager spoke with patient's
friend, Gigi who reports that patient's dog is being taken care of by neighbors and patient and sister are receiving daily reports on care and feedings from the neighbors. Patient has friends Alesia Crespo [phone] and Gigi Soliz [phone].
Patient is now being followed by the [facility] Sammie Storm [phone], who will need a call when patient is discharged.
[facility] contacted for possible homecare referral.
Plan; Will await recommendations from psychiatry on plan for patient.
[2024-02-04 15:24] VITALS: BP 135/86
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
[2024-02-04] MEDS: LOVENOX 40 MG SC (17:56)
[2024-02-04] MEDS: TYLENOL 650 MG PO (21:32)
[2024-02-04] MEDS: SENOKOT 17.2 MG PO (21:34)
[2024-02-04 23:21] VITALS: BP 143/93
[2024-02-05] MEDS: SYNTHROID 112 MCG PO (06:27)
[2024-02-05 07:28] VITALS: BP 136/95
[2024-02-05] MEDS: MIRALAX 17 GRAMS PO (07:39)
[2024-02-05] MEDS: NEURONTIN 600 MG PO ×2 (07:40→21:13)
[2024-02-05] MEDS: ATIVAN 0.5 MG PO ×4 (07:40→21:14)
[2024-02-05] MEDS: NORVASC 5 MG PO (07:40)
[2024-02-05] MEDS: ZOLOFT 150 MG PO (07:40)
[2024-02-05] MEDS: ORETIC 12.5 MG PO (07:40)
[2024-02-05] MEDS: ABILIFY 2 MG PO (07:41)
[2024-02-05] MEDS: MYCOSTATIN ORAL SUSPENSION 5 ML PO ×4 (07:41→21:14)
--- NOTE | 2024-02-05 09:15 | W.PN.HOSP.TC ---
Today's Communication/Plan
-
Continue medication adjustments as per psychiatry
Discharge when cleared by psychiatry
Assessment / Plan
Assessment / Plan
HPI: 68 yo F PMH unspecified psychosis unclear etiology, HTN, hypothyroidism, depression, seizure; p/w altered mental status.
She apparently stated her dog had but a neighbor stated the dog was apparently in a house the entire time.
Of note, there was a recent admission 01/17- 01/23 for acute psychosis and she was discharged on Abilify which seemed to have stabilized her.
In ER : She was disheveled with dry oral mucous membranes, oriented to year and place but disoriented to events.
A/P:
# Acute metabolic encephalopathy, could be UTI with exacerbation of psychosis
CT head negative
Urine culture with pansensitive E coli
Empiric Azactam changed to Ancef (pt has allergy listed to PCN- reaction hives; and allergy listed to cephalosporin which probably was documented due to potential cross reactivity). Doubt true allergy to cephalosporin.
S/p 3 days Abx, no further Abx needed
# Unspecified psychosis of uncertain etiology
# Anxiety/depression
Suspect benzo withdrawal per Psych
Changed Ativan 0.5mg PRN to ATC TID, patient requested to increase to 4 times daily 02/04
Appreciate psychiatry input, resumed Abilify 2 mg at bedtime 02/03
Patient did not want to take the previous dose of abilify 5 mg that she was discharged on 2 weeks ago
Continue medication adjustments as per psychiatry
# ADHD
Stopped Adderall which per psych can acutely worsen psychotic sxs
# Oral thrush
Continue nystatin S/S
# Essential hypertension
Continue amlodipine
Continue hydrochlorothiazide
# Hypothyroidism
Continue levothyroxine
TSH 9.62, FT4 1.35, could be due to non-compliance or inadequate dose. Would not change dose now with concern of likely non-compliance
Recc outpt TFT follow up in 4-6 weeks
# History of seizures
Continue gabapentin
DVT prophylaxis�subcu Lovenox
Full code
Total time spent to see the patient on the floor, examine the patient, review data and lab results, discuss treatment plan with patient, nursing staff around 38 minutes.
Physical Exam
General: No acute distress
HEENT: Normocephalic, Atraumatic, EOMI, MMM
Respiratory: Clear to Auscultation bilaterally
Cardiac: Normal S1/S2, Regular Rate and Rhythm
GI: Soft, Nontender, Nondistended, Normal Bowel Sounds
Extremities: No Clubbing, Cyanosis, or Edema
Neuro: Nonfocal/Grossly Intact
Psych: Delusional, anxious
Anticipated Discharge: 24 - 48 hours
Subjective/Interval History
-
Date of Service: February 05, 2024
Patient appears anxious, and is questioning her medications. No fever, no vomiting.
Objective Data
-
Vital Signs:
Vital Signs
Temp Pulse Resp BP Pulse Ox
97.7 F 86 18 136/95 97
02/05/24 07:28 02/05/24 07:28 02/05/24 07:28 02/05/24 07:40 02/05/24 07:32
I&O
02/04/24 02/05/24 02/06/24
06:59 06:59 06:59
Intake Total 1620 / 1620 960 / 960
Output Total 0 / 0
Balance 1620 / 1620 960 / 960
[2024-02-05] MEDS: LOVENOX 40 MG SC (17:24)
[2024-02-05] MEDS: FLEXERIL 10 MG PO (21:14)
[2024-02-05] MEDS: SENOKOT 17.2 MG PO (21:14)
[2024-02-05 23:45] VITALS: BP 120/82
[2024-02-06] MEDS: SYNTHROID 112 MCG PO (05:11)
[2024-02-06 07:00] VITALS: BP 121/75
--- NOTE | 2024-02-06 08:47 | W.PN.HOSP.TC ---
Today's Communication/Plan
-
Discharge tomorrow if cleared by psychiatry
Assessment / Plan
Assessment / Plan
HPI: 68 yo F PMH unspecified psychosis unclear etiology, HTN, hypothyroidism, depression, seizure; p/w altered mental status.
She apparently stated her dog had but a neighbor stated the dog was apparently in a house the entire time.
Of note, there was a recent admission 01/17- 01/23 for acute psychosis and she was discharged on Abilify which seemed to have stabilized her.
In ER : She was disheveled with dry oral mucous membranes, oriented to year and place but disoriented to events.
A/P:
# Acute metabolic encephalopathy, could be UTI with exacerbation of psychosis
CT head negative
Urine culture with pansensitive E coli
Empiric Azactam changed to Ancef (pt has allergy listed to PCN- reaction hives; and allergy listed to cephalosporin which probably was documented due to potential cross reactivity). Doubt true allergy to cephalosporin.
S/p 3 days Abx, no further Abx needed
# Unspecified psychosis of uncertain etiology
# Anxiety/depression
Suspect benzo withdrawal per Psych
Changed Ativan 0.5mg PRN to ATC TID, patient requested to increase to 4 times daily 02/04
Appreciate psychiatry input, resumed Abilify 2 mg at bedtime 02/03
Patient did not want to take the previous dose of abilify 5 mg that she was discharged on 2 weeks ago
Continue medication adjustments as per psychiatry
# ADHD
Stopped Adderall which per psych can acutely worsen psychotic sxs
# Oral thrush
Continue nystatin S/S
# Essential hypertension
Continue amlodipine
Continue hydrochlorothiazide
# Hypothyroidism
Continue levothyroxine
TSH 9.62, FT4 1.35, could be due to non-compliance or inadequate dose. Would not change dose now with concern of likely non-compliance
Recc outpt TFT follow up in 4-6 weeks
# History of seizures
Continue gabapentin
DVT prophylaxis�subcu Lovenox
Full code
Total time spent to see the patient on the floor, examine the patient, review data and lab results, discuss treatment plan with patient, nursing staff around 36 minutes.
Physical Exam
General: No acute distress
HEENT: Normocephalic, Atraumatic, EOMI, MMM
Respiratory: Clear to Auscultation bilaterally
Cardiac: Normal S1/S2, Regular Rate and Rhythm
GI: Soft, Nontender, Nondistended, Normal Bowel Sounds
Extremities: No Clubbing, Cyanosis, or Edema
Neuro: Nonfocal/Grossly Intact
Psych: Delusional, anxious
Anticipated Discharge: Within 24 hours
Subjective/Interval History
-
Date of Service: February 06, 2024
Patient's confusion is improved. No fever, no vomiting.
Objective Data
-
Vital Signs:
Vital Signs
Temp Pulse Resp BP Pulse Ox
97.5 F 70 18 120/82 100
02/05/24 23:45 02/05/24 23:45 02/05/24 23:45 02/05/24 23:45 02/05/24 23:45
I&O
02/05/24 02/06/24 02/07/24
06:59 06:59 06:59
Intake Total 960 / 960 1080 / 1080
Output Total 0 / 0
Balance 960 / 960 1080 / 1080
[2024-02-06] MEDS: ORETIC 12.5 MG PO (09:00)
[2024-02-06] MEDS: NEURONTIN 600 MG PO ×2 (09:01→21:27)
[2024-02-06] MEDS: ABILIFY 2 MG PO (09:01)
[2024-02-06] MEDS: MYCOSTATIN ORAL SUSPENSION 5 ML PO ×4 (09:02→21:29)
[2024-02-06] MEDS: NORVASC 5 MG PO (09:06)
[2024-02-06] MEDS: ZOLOFT 150 MG PO (09:07)
[2024-02-06] MEDS: ATIVAN 0.5 MG PO ×4 (09:07→21:29)
--- NOTE | 2024-02-06 10:01 | CM ---
channel business manager reviewed patient's chart and met with patient this am, patient is anxious to return to home, and is agreeable to [facility], patient states that her PCP through [facility]. Patient states she will
continue with her telehealth appointments with Dr. Saleem Office.
Plan; To follow with patient progress and assist with discharge planning, will await updated psychiatry notes.
--- NOTE | 2024-02-06 10:23 | VNURNOTE ---
[facility]. Does not appear to have skilled home VN need, no referral placed. CM updated.
[2024-02-06] MEDS: CLARITIN 10 MG PO (13:06)
[2024-02-06 15:18] VITALS: BP 113/73
--- NOTE | 2024-02-06 17:05 | W.PN.UPDATE ---
Update Note
Progress Note Update
Pt seen & evaluated, chart reviewed. Resting comfortably in bed - remains logorrheic and circumstantial, at times can become tangential but more easily redirectable. Able to discuss recent admissions more meaningfully, and identifies experiencing
'psychosis'. Continues to maintain that she does not have a history ofthis outside of May 2021 (admitted medically here at the time) at which time she says she had run out of ativan and likely was experiencing withdrawal delirium. She denies
currently running out of Ativan (though as per my prior notes, she had reported such while initially presenting and more delirious during both recent admissions here). Remains unclear but would monitor pdmp closely if pt is admitted here again with
similar presentation.
She is able to reasonably discuss where she lives, including neighbors and how theyve been helping watch her dog while she is here. Talks about a close friend with whom she can stay if she feels she needs more support. SHe also wants to get home and
get her cell phone as she has not been able to get in contact with her son and wants to call his work.
Imp: Unspecified psychotic d/o, possibly due to Rx Adderall
TME, improving
Rec: continue Abilify 2 mg, Ativan 0.5mg TID, Sertraline.
has outpatient psychiatrist with whom she will follow up
patient does not want sister to be contacted at this time
[2024-02-06] MEDS: LOVENOX 40 MG SC (17:31)
[2024-02-06] MEDS: FLEXERIL 10 MG PO (21:28)
[2024-02-06] MEDS: SENOKOT 17.2 MG PO (21:29)
[2024-02-06] MEDS: MIRALAX 17 GRAMS PO (21:33)
[2024-02-06 23:30] VITALS: BP 150/86
[2024-02-07] MEDS: SYNTHROID 112 MCG PO (05:00)
[2024-02-07 07:00] VITALS: BP 116/75
[2024-02-07] MEDS: MYCOSTATIN ORAL SUSPENSION 5 ML PO ×2 (09:23→13:26)
[2024-02-07] MEDS: ORETIC 12.5 MG PO (09:23)
[2024-02-07] MEDS: NEURONTIN 600 MG PO (09:23)
[2024-02-07] MEDS: ABILIFY 2 MG PO (09:23)
[2024-02-07] MEDS: ATIVAN 0.5 MG PO ×2 (09:23→13:26)
[2024-02-07] MEDS: ZOLOFT 150 MG PO (09:28)
[2024-02-07] MEDS: NORVASC 5 MG PO (09:29)
--- NOTE | 2024-02-07 09:39 | W.PN.HOSP.TC ---
Today's Communication/Plan
-
Cleared by psychiatry for discharge today
Assessment / Plan
Assessment / Plan
HPI: 68 yo F PMH unspecified psychosis unclear etiology, HTN, hypothyroidism, depression, seizure; p/w altered mental status.
She apparently stated her dog had but a neighbor stated the dog was apparently in a house the entire time.
Of note, there was a recent admission 01/17- 01/23 for acute psychosis and she was discharged on Abilify which seemed to have stabilized her.
In ER : She was disheveled with dry oral mucous membranes, oriented to year and place but disoriented to events.
A/P:
# Acute metabolic encephalopathy, could be UTI with exacerbation of psychosis
CT head negative
Urine culture with pansensitive E coli
Empiric Azactam changed to Ancef (pt has allergy listed to PCN- reaction hives; and allergy listed to cephalosporin which probably was documented due to potential cross reactivity). Doubt true allergy to cephalosporin.
S/p 3 days Abx, no further Abx needed
# Unspecified psychosis of uncertain etiology
# Anxiety/depression
Changed Ativan 0.5mg PRN to ATC TID, patient requested to increase to 4 times daily 02/04
Appreciate psychiatry input, resumed Abilify 2 mg at bedtime 02/03
Patient did not want to take the previous dose of abilify 5 mg that she was discharged on 2 weeks ago
Discussed with psychiatry, who suspects benzo withdrawal as patient did not take Ativan when she came home
Case management verified that the [facility] can fill her Ativan today, medically stable for discharge
# ADHD
Stopped Adderall which per psych can acutely worsen psychotic sxs
# Oral thrush
Continue nystatin S/S
# Essential hypertension
Continue amlodipine
Continue hydrochlorothiazide
# Hypothyroidism
Continue levothyroxine
TSH 9.62, FT4 1.35, could be due to non-compliance or inadequate dose. Would not change dose now with concern of likely non-compliance
Recc outpt TFT follow up in 4-6 weeks
# History of seizures
Continue gabapentin
DVT prophylaxis�subcu Lovenox
Full code
Physical Exam
General: No acute distress
HEENT: Normocephalic, Atraumatic, EOMI, MMM
Respiratory: Clear to Auscultation bilaterally
Cardiac: Normal S1/S2, Regular Rate and Rhythm
GI: Soft, Nontender, Nondistended, Normal Bowel Sounds
Extremities: No Clubbing, Cyanosis, or Edema
Neuro: Nonfocal/Grossly Intact
Psych: Delusional, anxious
Anticipated Discharge: Today
Subjective/Interval History
-
Date of Service: February 07, 2024
Continues to feel better.
Objective Data
-
Vital Signs:
Vital Signs
Temp Pulse Resp BP Pulse Ox
97.6 F 77 16 150/86 95
02/06/24 23:30 02/06/24 23:30 02/06/24 23:30 02/06/24 23:30 02/06/24 23:30
I&O
02/06/24 02/07/24 02/08/24
06:59 06:59 06:59
Intake Total 1080 / 1080 960 / 960
Balance 1080 / 1080 960 / 960
--- NOTE | 2024-02-07 11:58 | W.DCSUMMARY ---
Discharge Summary
Discharge Data
Date of Admission: 01/30/24
Date of Discharge: 02/07/24
-
Pending Results: No
Hospital Course
Discharge diagnosis:
Acute confusion, suspect secondary to benzodiazepine withdrawal
Unspecified psychotic disorder
Acute urinary tract infection
Essential hypertension
Hypothyroidism
History of seizures
Consults: Psychiatry
Hospital course:
68-year-old female with a past medical history of hypertension, hypothyroidism, seizures, and ADHD/mood disorder was admitted for acute confusion. Patient was recently discharged on 01/24/2024 for acute psychosis, on Ativan and Abilify. She was
unable to take her Ativan when she got home. She was seen in conjunction with psychiatry, who suspects benzodiazepine withdrawal. However, acute psychotic disorder cannot be ruled out. Patient was resumed on her Ativan 0.5 mg 4 times daily. She
was also resumed on Abilify 2 mg at bedtime. She declines the previous 5 mg at bedtime dose. Psychiatry recommends permanently discontinuing her Adderall, which can worsen psychosis.
Patient was also found to have an acute urinary tract infection. She received 3 days of antibiotics. Her urinary tract infection resolved.
Patient is medically stable and cleared by psychiatry for discharge. Case management verified that her pharmacy could fill her Ativan the day of discharge. She needs to follow-up with her primary care doctor in 1 week, and her usual psychiatrist
in the office as soon as possible.
Disposition: Home self-care
Discharge planning: Required 38 minutes
Discharge Plan
-
Patient Disposition: Home (Routine Discharge)
Discharge Diagnosis/Procedures: Acute urinary tract infection, acute confusion suspect Ativan withdrawal
Condition: Fair
Diet: Regular
Activity: As tolerated
Driving Restrictions: As prior to admission
Activity Restrictions/Additional Instructions:
The psychiatrist thinks that you had confusion from ativan withdrawal.
It is very important that you take your Ativan as prescribed.
Please follow-up with your primary care doctor in 1 week, and your usual psychiatrist as soon as possible.
Referrals:
UNKNOWN - PT NOT,INTERVIEWE [Family Provider] -
Prescriptions:
New
aripiprazole 2 mg Tablet
2 mg PO DAILY Qty: 30 0RF
Continued
levothyroxine 112 MCG tablet
112 mcg PO DAILY
amlodipine 5 MG tablet
5 mg PO DAILY
sertraline 50 mg Tablet
150 mg PO DAILY
cyclobenzaprine 10 mg Tablet
10 mg PO HS
fexofenadine 60 mg Tablet
60 mg PO BIDPRN PRN (Reason: allergies)
gabapentin 300 mg Capsule
600 mg PO BID
magnesium oxide 400 mg magnesium Tablet
400 mg PO DAILY
hydrochlorothiazide 12.5 mg tablet
12.5 mg PO DAILY
acetaminophen 325 mg Tablet
650 mg PO Q4HPRN PRN (Reason: MILD PAIN/FEVER) 10 Days Qty: 60 0RF
sennosides [Senna Laxative] 8.6 mg tablet
17.2 mg PO HS
lidocaine 4 % adhesive patch,medicated
1 patch topical DAILY
lorazepam 0.5 mg tablet
0.5 mg PO QID
pantoprazole 40 mg tablet,delayed release (DR/EC)
40 mg PO DAILY
Discontinued
dextroamphetamine-amphetamine [Adderall] 20 mg Tablet
20 mg PO DAILYPRN PRN (Reason: for work days only)
Patient Comments:
01/18/2024: last filled 01/01/24, 30 tabs for 30 days from [facility]
aripiprazole 5 mg tablet
5 mg PO HS
Discharge Orders:
Discharge Patient (As Directed); Ordered 02/07/24
Ordered By: Seymour Carlos
Discharge Date and Time
Discharge Date/Time: 02/07/24 14:33
Print Language: KISWAHILI
--- NOTE | 2024-02-07 13:11 | CM ---
senior product manager reviewed patient's chart and per physician notes plan is for patient to return to home today, psychiatry have adjusted patient's medication and patient to follow up with her psychiatrist after discharge. senior product manager reached out to
patient's pharmacy, [facility] and was informed that patient's prescriptions are ready for pickup. senior product manager spoke with patient and her friend, Corinne will pick patient up from the hospital today.
Plan; Home today.
[2024-02-07] MEDS: FLUAD (65 yr+) 2024-2025 FORMULA 0.5 ML IM (13:27)
[2024-02-07 14:14] VITALS: BP 121/66
--- NOTE | 2024-02-07 16:36 | PTCARENOTE ---
Rn Flow- Patient states that she thinks that her purse was placed in the safe. Called to security for confirmation. No receipt for the safe present on chart, and security confirmed that purse was not here.
--- NOTE | 2024-02-08 11:13 | CM ---
Late Entry
Call placed to [facility] protective services and caseworker spoke with Sammie Storm and made her aware that patient was discharged to home yesterday, per Sammie she will follow with patient.
== END 2024-02-07 14:33 | disposition home or self-care (01) | DRG 896 ==
LOC: 4 WEST ACU 17:40
PROVIDERS: Internal Medicine; Physician Assistant; ADMITTING PHYSICIAN Internal Medicine; ATTENDING PHYSICIAN Family Medicine; CONSULT PHYSICIAN Psychiatry & Neurology Psychiatry; EMERGENCY PHYSICIAN Emergency Medicine
PROC: 3E02340 Introduction of Influenza Vaccine into Muscle, Percutaneous Approach (ICD-10-PCS; 2024-02-07)
DX: F13.931 Sedative, hypnotic or anxiolytic use, unspecified with withdrawal delirium (principal); G93.41 Metabolic encephalopathy; B37.0 Candidal stomatitis; N39.0 Urinary tract infection, site not specified; F23 Brief psychotic disorder; Z68.1 Body mass index [BMI] 19.9 or less, adult; R41.82 Altered mental status, unspecified; E03.9 Hypothyroidism, unspecified; F32.A Depression, unspecified; R56.9 Unspecified convulsions; R01.1 Cardiac murmur, unspecified; R63.6 Underweight; I10 Essential (primary) hypertension; J30.9 Allergic rhinitis, unspecified; B96.20 Unspecified Escherichia coli [E. coli] as the cause of diseases classified elsewhere; M54.9 Dorsalgia, unspecified; E87.6 Hypokalemia; F41.9 Anxiety disorder, unspecified; F90.9 Attention-deficit hyperactivity disorder, unspecified type; Z90.49 Acquired absence of other specified parts of digestive tract; Z98.1 Arthrodesis status; Z88.0 Allergy status to penicillin; Z88.1 Allergy status to other antibiotic agents; Z23 Encounter for immunization; Z91.148 Patient's other noncompliance with medication regimen for other reason; Z79.890 Hormone replacement therapy
CPT/HCPCS: 70450; 80048; 80306; 80307; 81003; 81015; 82077; 82550; 83735; 84439; 84443; 85025; 85027; 87077; 87086; 87186; 90662; 96374; 96375; 99284; G0008

== ENCOUNTER → 2024-06-10 16:42 | Outpatient (REF) | payer MEDICARE, OTHER, SELFPAY ==
[2024-06-10 17:42] LABS: % Basophils 0.9 % (0-2); % Eosinophils 1.9 % (0-6); % Immature Granulocytes 0.2 % (0-0.5); % Lymphocytes 29.3 % (20.5-51.1); % Monocytes 4.5 % (1.7-9.3); % Neutrophils 63.2 % (42.2-75.2); Absolute Basophils 0.1 10^3/uL (0-0.2); Absolute Eosinophils 0.1 10^3/uL (0-0.7); Absolute Lymphocytes 1.6 10^3/uL (1.2-3.4); Absolute Monocytes 0.2 10^3/uL (0.1-0.6); Absolute Neutrophils 3.4 10^3/uL (1.4-6.5); Hematocrit 37.3 % (37.0-47.0); Hemoglobin 12.1 g/dL (12.0-16.0); Mean Corp Hgb Conc. 32.4 g/dL (33.0-37.0); Mean Corpuscular Hgb 26.9 pg (27.0-31.0); Mean Corpuscular Volume 82.9 fL (81.0-99.0); Mean Platelet Volume 8.4 fL (7.4-10.4); Nucleated Red Blood Cells % 0 %; Platelet Count 272 10^3/uL (130-400); Red Cell Dist. Width 15.4 % (11.5-14.5); White Blood Cell Count 5.4 10^3/uL (4.8-10.8)
[2024-06-10 18:00] LABS: ALT (SGPT) 20 U/L (0-35); AST (SGOT) 29 U/L (14-36); Albumin 4.7 g/dl (3.5-5.0); Alkaline Phosphatase 72 U/L (38-126); Blood Urea Nitrogen 9 mg/dl (7-17); Calcium 9.7 mg/dl (8.4-10.2); Carbon Dioxide 30 mmol/L (22-30); Chloride 99 mmol/L (98-107); Glucose 97 mg/dl (70-99); HDL Cholesterol 87 mg/dl; LDL Cholesterol, Calculated 93 mg/dl; Potassium 3.6 mmol/L (3.5-5.1); Sodium 138 mmol/L (135-145); Total Bilirubin 0.6 mg/dl (0.2-1.3); Total Cholesterol 192 mg/dl (50-199); Triglyceride 60 mg/dl (10-149); Very Low Density Lipoprotein 12 mg/dl (0-30); eGFR > 60.00
[2024-06-10 18:29] LABS: TSH Reflex To Free T4 2.59 uIU/ml (0.47-4.68)
[2024-06-10 18:30] LABS: Hepatitis B Surface Antigen Negative (Negative)
[2024-06-10 18:41] LABS: HIV Combo Negative (Negative)
[2024-06-10 18:48] LABS: Hepatitis C Antibody Negative (Negative)
[2024-06-12 13:40] LABS: Syphilis/T. pallidum Ab Reflex Negative (Negative)
== END ==
LOC: REG 16:42
PROVIDERS: ATTENDING PHYSICIAN Family Medicine
DX: E03.9 Hypothyroidism, unspecified (principal); I10 Essential (primary) hypertension; Z11.3 Encounter for screening for infections with a predominantly sexual mode of transmission
CPT/HCPCS: 36415; 80053; 80061; 84443; 85025; 86780; 86803; 87340; 87389

== ENCOUNTER → 2024-06-19 12:00 | Outpatient (REF) | payer MEDICARE, OTHER, SELFPAY | LOC: MRI 3T 12:00 | PROVIDERS: ATTENDING PHYSICIAN Nurse Practitioner; FAMILY PHYSICIAN Family Medicine | DX: M48.02 Spinal stenosis, cervical region (principal) | CPT/HCPCS: 72156; A9575 ==

== ENCOUNTER → 2024-09-16 12:50 | Outpatient (REF) | payer MEDICARE, OTHER, SELFPAY | LOC: WDC 12:50 | PROVIDERS: ATTENDING PHYSICIAN Family Medicine | DX: Z12.31 Encounter for screening mammogram for malignant neoplasm of breast (principal) | CPT/HCPCS: 77063; 77067 ==

== ENCOUNTER → 2024-12-09 13:52 | Outpatient (REF) | payer MEDICARE, OTHER, SELFPAY | LOC: PAVMRI 13:52 | PROVIDERS: ATTENDING PHYSICIAN Physician Assistant; FAMILY PHYSICIAN Family Medicine | DX: M54.16 Radiculopathy, lumbar region (principal) | CPT/HCPCS: 72148 ==